=== PATIENT | female | born 1955 | race Caucasian/White ===

== ENCOUNTER 2017-03-31 14:11 | Outpatient (CLI) | payer MEDICAID ==
[2017-03-31 18:45] LABS: BASOPHILS % (AUTO) 0.4 %; EOSINOPHILS # (AUTO) 0.2 10^3/uL (0.0-0.7); EOSINOPHILS % (AUTO) 2.4 %; HGB - HEMOGLOBIN 15.1 g/dL (12.0-16.0); LYMPHOCYTES # (AUTO) 3.1 10^3/uL (1.5-3.5); LYMPHOCYTES % (AUTO) 39.3 %; MEAN CORPUSCULAR HEMOGLOBIN 29.7 pg (27.0-31.0); MEAN CORPUSCULAR HGB CONC 32.2 g/dL (32.0-36.0); MEAN CORPUSCULAR VOLUME 92.3 fL (81.0-99.0); MEAN PLATELET VOLUME 8.7 fL (7.9-10.8); MONOCYTES # (AUTO) 0.6 10^3/uL (0.0-1.0); MONOCYTES % (AUTO) 7.2 %; NEUTROPHILS % (AUTO) 50.7 %; PLT - PLATELET COUNT 378 10^3/uL (130-450); RED BLOOD COUNT 5.08 10^6/uL (4.20-5.40); RED CELL DISTRIBUTION WIDTH 14.4 % (12.0-15.0); WHITE BLOOD COUNT 7.8 x10^3/uL (4.8-10.8)
[2017-03-31 19:13] LABS: ALBUMIN 4.3 g/dL (3.2-5.5); ALBUMIN/GLOBULIN RATIO 1.4 (1.0-2.2); ALKALINE PHOSPHATASE 98 IU/L (42-121); ALT ALANINE AMINOTRANSFERASE 30 IU/L (10-60); AST ASPARTATE AMINOTRANSFERASE 25 IU/L (10-42); BILIRUBIN,TOTAL 0.5 mg/dL (0.2-1.0); BUN - BLOOD UREA NITROGEN 13 mg/dL (6-20); CALCIUM 9.7 mg/dL (8.5-10.3); CARBON DIOXIDE - CO2 25 mmol/L (21-32); CHLORIDE 107 mmol/L (101-111); CHOL/HDL RATIO 5.8 (<4.4); CHOLESTEROL 277 mg/dL; CREATININE 0.8 mg/dL (0.4-1.0); GFR - MDRD 73 (>89); GLUCOSE 99 mg/dL (70-100); HDL CHOLESTEROL 48 mg/dL; LDL CHOLESTEROL,CALCULATED 202 mg/dL; LDL/HDL RATIO 4.2 (<4.4); SODIUM 140 mmol/L (135-145); TOTAL PROTEIN 7.4 g/dL (6.7-8.2); VLDL CHOLESTEROL 27 mg/dL
[2017-03-31 19:14] LABS: CRP - C-REACTIVE PROTEIN < 1.0 mg/dL (0-1.0)
[2017-03-31 19:21] LABS: RHEUMATOID FACTOR NEGATIVE (Negative)
== END 2017-03-31 14:12 | disposition home or self-care (01) ==
LOC: LAB.N 14:11
PROVIDERS: ATTEND Physician Assistant Medical
DX: Z00.00 Encounter for general adult medical examination without abnormal findings (principal); F31.9 Bipolar disorder, unspecified; M25.50 Pain in unspecified joint
CPT/HCPCS: 36415; 80053; 80061; 83721; 84443; 85025; 85651; 86140; 86200; 86430

== ENCOUNTER 2017-06-09 12:42 | Outpatient (CLI) | payer MEDICAID ==
--- NOTE | 2017-06-10 09:26 | Mammography Report ---
DIGITAL BILATERAL SCREENING MAMMOGRAPHY: 06/09/2017 HISTORY: Mother with breast cancer and ovarian cancer, sister with breast cancer. TECHNIQUE: Bilateral digital CC and MLO projections. COMPARISON: 01/28/2016 and 06/14/2013. FINDINGS: There is extensive fatty replacement of the breast tissue. There is no dominant mass, architectural distortion, skin thickening, suspicious microcalcifications or interval change. IMPRESSION: NEGATIVE. BI-RADS CODE 1-NEGATIVE. SUGGEST RETURN TO ROUTINE SCREENING IN 12 MONTHS. STANDARD QUALIFYING STATEMENTS: 1. This examination was reviewed with the aid of Computer-Aided Detection (CAD). 2. A negative or benign imaging report should not delay biopsy if clinically suspicious findings are present. Consider surgical consultation if warranted. More than 5% of cancers are not identified by imaging. 3. Dense breasts may obscure an underlying neoplasm. TD: 06/10/2017 09:24
== END 2017-06-09 12:43 | disposition home or self-care (01) ==
LOC: DI 12:42
PROVIDERS: ATTEND Family Medicine
DX: Z12.31 Encounter for screening mammogram for malignant neoplasm of breast (principal); Z80.3 Family history of malignant neoplasm of breast
CPT/HCPCS: 77067

== ENCOUNTER 2017-06-09 12:54 | Outpatient (CLI) | payer MEDICAID ==
--- NOTE | 2017-06-09 17:11 | XRAY Report ---
BILATERAL HIPS: 06/09/2017 HISTORY: Pain. COMPARISON: None. FINDINGS: AP view of the pelvis and frog lateral view of each hip. The hip joints are well maintained. No evidence of fracture, bone destruction or significant joint space narrowing. Minor degenerative changes in the sacroiliac joints and lower lumbar spine. IMPRESSION: NEGATIVE HIPS FOR AGE. TD: 06/09/2017 17:11
--- NOTE | 2017-06-09 17:15 | XRAY Report ---
BILATERAL KNEES: 06/09/2017 HISTORY: Pain. COMPARISON: None. TECHNIQUE: Three views each knee. FINDINGS: RIGHT KNEE: Minimal patellar articular surface spurring. Medial and lateral knee joint spaces well maintained. No fracture, malalignment, joint effusion, or other abnormality. LEFT KNEE: Minimal degenerative spurring along the medial knee joint. Overall joint space heights well maintained. No fracture, malalignment, joint effusion, or other abnormality. IMPRESSION: MINIMAL EARLY DEGENERATIVE CHANGE OF EACH KNEE, COMMENSURATE WITH THE PATIENT'S AGE. NO SUPERIMPOSED ACUTE FINDINGS. TD: 06/09/2017 17:14 JESSI
--- NOTE | 2017-06-09 17:18 | XRAY Report ---
BILATERAL HANDS: 06/09/2017 HISTORY: Pain. COMPARISON: None. TECHNIQUE: Three views of each hand. FINDINGS: RIGHT HAND: Minimal early degenerative change in the interphalangeal joints of the fingers and thumb. Early first metacarpocarpal degenerative change. No evidence of fracture, malalignment, soft tissue swelling, radiopaque foreign body or other abnormality. LEFT HAND: Mild early degenerative changes of the interphalangeal joints of the fingers and thumb. Minor first metacarpocarpal degenerative change. No fracture, malalignment, soft tissue swelling, radiopaque foreign body or other abnormality. IMPRESSION: BILATERAL HAND EARLY DEGENERATIVE CHANGE WITHOUT SUPERIMPOSED ACUTE FINDINGS. TD: 06/09/2017 17:17
== END 2017-06-09 12:55 | disposition home or self-care (01) ==
LOC: DI 12:54
PROVIDERS: ATTEND Family Medicine
DX: M17.0 Bilateral primary osteoarthritis of knee (principal); M19.042 Primary osteoarthritis, left hand; M19.041 Primary osteoarthritis, right hand
CPT/HCPCS: 73521

== ENCOUNTER 2018-01-28 13:12 | Emergency (ER) | payer MEDICAID ==
[2018-01-28 13:52] LABS: BASOPHILS % (AUTO) 0.1 %; EOSINOPHILS # (AUTO) 0.5 10^3/uL (0.0-0.7); EOSINOPHILS % (AUTO) 4.7 %; HGB - HEMOGLOBIN 15.5 g/dL (12.0-16.0); LYMPHOCYTES # (AUTO) 3.1 10^3/uL (1.5-3.5); LYMPHOCYTES % (AUTO) 30.5 %; MEAN CORPUSCULAR HEMOGLOBIN 31.3 pg (27.0-31.0); MEAN CORPUSCULAR HGB CONC 34.2 g/dL (32.0-36.0); MEAN CORPUSCULAR VOLUME 91.5 fL (81.0-99.0); MEAN PLATELET VOLUME 8.4 fL (7.9-10.8); MONOCYTES # (AUTO) 0.7 10^3/uL (0.0-1.0); MONOCYTES % (AUTO) 6.7 %; NEUTROPHILS # (AUTO) 5.8 10^3/uL (1.5-6.6); PLT - PLATELET COUNT 403 10^3/uL (130-450); RED BLOOD COUNT 4.95 10^6/uL (4.20-5.40); RED CELL DISTRIBUTION WIDTH 14.3 % (12.0-15.0)
[2018-01-28 14:02] LABS: ALBUMIN 4.4 g/dL (3.2-5.5); ALBUMIN/GLOBULIN RATIO 1.5 (1.0-2.2); BILIRUBIN,TOTAL 0.3 mg/dL (0.2-1.0); CALCIUM 9.6 mg/dL (8.5-10.3); CREATININE 0.8 mg/dL (0.4-1.0); TOTAL PROTEIN 7.4 g/dL (6.7-8.2)
[2018-01-28 14:38] LABS: BILIRUBIN,URINE NEGATIVE (NEGATIVE); GLUCOSE, URINE (UA) NEGATIVE (NEGATIVE); KETONES,URINE (UA) NEGATIVE (NEGATIVE); LEUKOCYTE ESTERASE, URINE NEGATIVE (NEGATIVE); NITRITE,URINE NEGATIVE (NEGATIVE); OCCULT BLOOD,URINE TRACE-INTA (NEGATIVE); PROTEIN,URINE NEGATIVE (NEGATIVE); UROBILINOGEN,URINE 0.2 (NORMAL) E.U./dL (NORMAL)
[2018-01-28 14:41] LABS: CLARITY,URINE CLEAR (CLEAR)
--- NOTE | 2018-01-28 16:41 | ED Physician Documentation ---
PD HPI ABD PAIN - Stated complaint Stated Complaint: ABD PX/WEAKNESS - Chief complaint Chief Complaint: Abd Pain - History obtained from History obtained from: Patient - History of Present Illness Timing - onset: Other (1 week pain, starting LUQ now LLQ. Has H/O cholecystectomy, lap band. The lap band was removed 2 yrs ago. Has H/O diverticulitis dx clinically, no CT about 4 mos ago) Review of Systems Ten Systems: 10 systems reviewed and negative Constitutional: denies: Fever, Chills Nose: reports: Reviewed and negative Cardiac: reports: Reviewed and negative Respiratory: reports: Reviewed and negative GI: reports: Reviewed and negative PD PAST MEDICAL HISTORY - Past Medical History Past Medical History: Yes GI: Diverticulitis Psych: Bipolar disorder - Past Surgical History Past Surgical History: Yes General: Cholecystectomy, Gastric surgery - Present Medications Home Medications: Ambulatory Orders Medication Instructions Recorded Confirmed Amox/Clav 875/125 [Augmentin] 1 each PO Q12H #20 tablet 01/28/18 Benztropine Mesylate 0.5 01/28/18 Cholecalciferol (Vitamin D3) 1,000 unit PO 01/28/18 [Vitamin D3] Hydrocodone/Acetaminophen 1 - 2 each PO Q6H PRN #10 tablet 01/28/18 [Hydrocodon-Acetaminophen 5-325] Lamotrigine [Lamotrigine ER] 100 mg PO 01/28/18 Omeprazole 20 mg PO 01/28/18 QUEtiapine [SEROquel] 100 mg PO QPM 01/28/18 01/28/18 clonazePAM [Clonazepam] 1 mg PO 01/28/18 01/28/18 - Allergies Allergies/Adverse Reactions: Allergies Allergy/AdvReac Type Severity Reaction Status Date / Time codeine Allergy Edema Verified 01/28/18 13:19 moxifloxacin [From Avelox] Allergy Anaphylaxis Verified 01/28/18 13:19 - Social History Does the pt drink ETOH?: No Does the pt have substance abuse?: No - Family History Family history: reports: Non contributory PD ED PE NORMAL - Vitals Vital signs reviewed: Yes - General General: Alert and oriented X 3, No acute distress - HEENT HEENT: PERRL, EOMI - Neck Neck: Supple, no meningeal sign, No bony TTP - Cardiac Cardiac: RRR, No murmur - Respiratory Respiratory: No respiratory distress, Clear bilaterally - Abdomen Abdomen: Normal bowel sounds, Soft, Other (Left mid abdominal tenderness without surgical signs) - Back Back: No CVA TTP, No spinal TTP - Derm Derm: Normal color, Warm and dry - Extremities Extremities: No edema, No calf tenderness / cord - Neuro Neuro: Alert and oriented X 3, Normal speech - Psych Psych: Normal mood, Normal affect Results - Vitals Vitals: Vital Signs - 24 hr 01/28/18 01/28/18 13:16 16:40 Temperature 36.6 C Heart Rate 84 82 Respiratory 18 14 Rate Blood Pressure 149/103 H 162/98 H O2 Saturation 98 96 Oxygen O2 Source Room air - Labs Labs: Laboratory Tests 01/28/18 01/28/18 01/28/18 13:43 13:43 14:35 WBC 10.0 RBC 4.95 Hgb 15.5 Hct 45.3 MCV 91.5 MCH 31.3 H MCHC 34.2 RDW 14.3 Plt Count 403 MPV 8.4 Neut # (Auto) 5.8 Lymph # (Auto) 3.1 [place] # (Auto) 0.7 Eos # (Auto) 0.5 Baso # (Auto) 0.0 Absolute Nucleated RBC 0.00 Nucleated RBC % 0.0 Sodium 140 Potassium 3.6 Chloride 106 Carbon Dioxide 26 Anion Gap 8.0 BUN 10 Creatinine 0.8 Estimated GFR (MDRD) 72 L Glucose 101 H Calcium 9.6 Total Bilirubin 0.3 AST 20 ALT 17 Alkaline Phosphatase 82 Total Protein 7.4 Albumin 4.4 Globulin 3.0 Albumin/Globulin Ratio 1.5 Lipase 35 Urine Color YELLOW Urine Clarity CLEAR Urine pH 6.0 Ur Specific [place] 1.010 Urine Protein NEGATIVE Urine Glucose (UA) NEGATIVE Urine Ketones NEGATIVE Urine Occult Blood TRACE-INTA Urine Nitrite NEGATIVE Urine Bilirubin NEGATIVE Urine Urobilinogen 0.2 (NORMAL) Ur Leukocyte Esterase NEGATIVE Ur Microscopic Review NOT INDICATED Urine Culture Comments NOT INDICATED - Rads (name of study) CT A/P Radiology: EMP read contemporaneously (Diverticulosis without obvious diverticulitis. Cholecystectomy and hiatal hernia.) PD MEDICAL DECISION MAKING - ED course ED course: 62-year-old woman with history of diverticulitis presents with symptoms of same. Not obvious on CT but suspect it is indolent without imaging findings given lack of other findings. She has had good relief with Augmentin in the past. Departure - Departure Disposition: Home, Self Care Clinical Impression: Diverticulitis of gastrointestinal tract Condition: Good Record reviewed to determine appropriate education?: Yes Instructions: ED Abdominal Pain Unkn Cause Prescriptions: Amox/Clav 875/125 [Augmentin] 1 each PO Q12H #20 tablet Hydrocodone/Acetaminophen [Hydrocodon-Acetaminophen 5-325] 1 - 2 each PO Q6H PRN #10 tablet PRN Reason: pain Comments: Call your doctor to arrange a follow-up appointment, make the next available appointment. In the interim, return anytime if worse or if new symptoms develop. Your blood pressure was elevated today on check into the emergency department. This does not mean that you have hypertension, it is a common phenomenon to come to the emergency department and have elevated blood pressure. I recommend that you see your primary care physician within the week to have it rechecked when you are feeling better. Do not drink or drive while taking narcotic pain medication. Note that many narcotic pain relievers also contain Tylenol/acetaminophen. Please ensure that your total dose of acetaminophen from all sources does not exceed 3 g (3000 mg) per day. You may get constipated while on this medication. Take a stool softener such as Colace twice a day while you are on it. Also add an [id number] laxative such as senna or MiraLAX on any day that you do not have a bowel movement. If you received a narcotic pain medication or sedative while in the emergency department, do not drive for the next 24 hours.
[2018-01-28] MEDS ORDERED: ACETAMINOPHEN 325 MG TABLET PO STA (16:46)
[2018-01-28] MEDS ORDERED: IOVERSOL 320 100 ML VIAL IVP ONE ×2 (16:57→17:29)
--- NOTE | 2018-01-28 18:16 | CT Report ---
Reason: IV only, L side abd pain Procedure Date: 01/28/2018 Accession Number: [id number] / [id number] Procedure: CT - Abdomen/Pelvis W/ CPT Code: FULL RESULT: EXAM: CT ABDOMEN AND PELVIS EXAM DATE: 01/28/2018 05:25 PM. CLINICAL HISTORY: IV only, L side abd pain. COMPARISONS: None. TECHNIQUE: Routine helical CT imaging was performed through the abdomen and pelvis. IV contrast: optiray 320 100 ml. Enteric contrast: No. Reconstructions: Coronal and sagittal. In accordance with CT protocol optimization, one or more of the following dose reduction techniques were utilized for this exam: automated exposure control, adjustment of mA and/or KV based on patient size, or use of iterative reconstructive technique. FINDINGS: Lung Bases: Lung bases are clear. No pleural or pericardial effusions. No cardiac enlargement. Moderate paraesophageal hiatal hernia noted. Liver: Normal. No masses. Gallbladder/Bile Ducts: Gallbladder is absent. No common bile duct dilation noted. Spleen: Normal. Pancreas: Normal. Adrenal Glands: Normal. Kidneys: Normal. No masses or hydronephrosis. Peritoneal Cavity/Bowel: Normal. No free fluid, free air or adenopathy. No masses or acute inflammatory process. There are multiple diverticula seen which most severely affect the sigmoid colon. No wall thickening or adjacent inflammation seen. No obstruction noted. Appendix is not seen. Sigmoid colon is redundant. Pelvic Organs: No pelvic mass, adenopathy or collection. Vasculature: Diffuse atheromatous plaques are present in the abdominal aorta and branch vessels. No aneurysm. Normal IVC. Bones: No osteoblastic or osteolytic lesions are noted. Multilevel degenerative disk disease and facet arthropathy is noted. Transitional L5 vertebral body. Grade 1 L4 on L5 anterolisthesis. Multilevel degenerative disk disease in the lower thoracic spine noted. Other: None. IMPRESSION: 1. No acute abnormality in the abdomen or pelvis. 2. Diverticulosis. 3. Previous cholecystectomy. 4. Moderate paraesophageal hernia. RADIA
[2018-01-28] MEDS ORDERED: AMOX/CLAV 875 MG/125 MG TABLET PO STA (18:34)
[2018-01-28 18:55] VITALS: BP 168/72
== END 2018-01-28 18:54 | disposition home or self-care (01) ==
LOC: ED 13:12
DX: K57.92 Diverticulitis of intestine, part unspecified, without perforation or abscess without bleeding (principal); R03.0 Elevated blood-pressure reading, without diagnosis of hypertension
CPT/HCPCS: 36415; 74177; 80053; 81003; 83690; 85025; 99283; 99284; A9270; Q9967; 81001; 87086

== ENCOUNTER 2018-08-03 18:01 | Emergency (ER) | payer MEDICAID ==
--- NOTE | 2018-08-03 20:32 | ED Physician Documentation ---
History of Present Illness - Stated complaint Stated Complaint: BODY ACHES - Chief complaint Chief Complaint: General - History obtained from History obtained from: Patient - History of Present Illness Timing: How many weeks ago (8) - Additonal information Additional information: This is 62-year-old woman who presents with complaints that 2 weeks ago she got scratched by herCat on her right pinky finger. She developed a lesion at that area and she went into see her primary care provider who put her on Augmentin for 7 days had her put Neosporin on it and bandaging it. She went back again when it was not improving and they put her doing Epson salt soaks and she went back a third time they recommended that she go see a curve saw operator but she cannot get into them for 2 months. She is here tonight because for the past 2 weeks she just feels exhausted. If she does any type of activity she just has to sit and rest. Her joints are achy and it is tender in the right armpit. She has really felt short of breath or had palpitations or chest pain or nausea. She does have a headache. There has not been any drainage from this wound although it is painful. She has had no fever. Denies peripheral edema. Review of Systems Constitutional: reports: Fatigue. denies: Fever, Chills Cardiac: denies: Chest pain / pressure, Palpitations, Pedal edema Respiratory: denies: Dyspnea, Cough GI: denies: Nausea, Vomiting : denies: Dysuria Neurologic: reports: Headache Endocrine: reports: Other (No history of diabetes.) PD PAST MEDICAL HISTORY - Past Medical History Endocrine/Autoimmune: None GI: Diverticulitis Psych: Bipolar disorder - Past Surgical History Past Surgical History: Yes General: Cholecystectomy, Gastric surgery - Present Medications Home Medications: Ambulatory Orders Medication Instructions Recorded Confirmed Benztropine Mesylate 0.5 01/28/18 Cholecalciferol (Vitamin D3) 1,000 unit PO 01/28/18 [Vitamin D3] Lamotrigine [Lamotrigine ER] 100 mg PO 01/28/18 QUEtiapine [SEROquel] 150 mg PO QPM 01/28/18 01/28/18 clonazePAM [Clonazepam] 1 mg PO PRN 01/28/18 01/28/18 Azithromycin [Zithromax] 0 mg PO DAILY #6 tablet 08/03/18 - Allergies Allergies/Adverse Reactions: Allergies Allergy/AdvReac Type Severity Reaction Status Date / Time codeine Allergy Edema Verified 08/03/18 18:21 moxifloxacin [From Avelox] Allergy Anaphylaxis Verified 08/03/18 18:21 - Social History Does the pt smoke?: Yes Smoking Status: Current every day smoker Does the pt drink ETOH?: No Does the pt have substance abuse?: No - POLST Patient has POLST: No PD ED PE NORMAL - Vitals Vital signs reviewed: Yes - General General: Alert and oriented X 3, No acute distress, Well developed/nourished - HEENT HEENT: Atraumatic - Neck Neck: No adenopathy - Cardiac Cardiac: RRR, No murmur - Respiratory Respiratory: No respiratory distress - Abdomen Abdomen: Normal bowel sounds - Derm Derm: Normal color, Other (On the ulnar aspect of the right pinky at the DIP joint there is what appears to be a pyogenic granuloma.) - Extremities Extremities: No deformity, Other (No obvious lymphadenopathy or lymphangitis. She is very tender with palpation in the right axilla but I cannot feel a large node.) - Neuro Neuro: Alert and oriented X 3, block bolter mule operator 2-12 intact, Normal speech - Psych Psych: Normal mood Results - Vitals Vitals: Vital Signs - 24 hr 08/03/18 08/03/18 18:14 22:32 Temperature 36.4 C L 36.2 C L Heart Rate 87 76 Respiratory 18 20 Rate Blood Pressure 138/84 H 128/69 O2 Saturation 96 94 Oxygen O2 Source Room air - EKG (time done) 2057 Rate: Rate (enter#) Rhythm: NSR Intervals: Normal CA Ischemia: Normal ST segments Compare to prior EKG: Old EKG unavailable - Labs Labs: Laboratory Tests 08/03/18 08/03/18 08/03/18 20:59 20:59 20:59 WBC 10.5 RBC 4.84 Hgb 15.1 Hct 44.6 MCV 92.1 MCH 31.3 H MCHC 33.9 RDW 14.4 Plt Count 367 MPV 7.8 L Neut # (Auto) 6.0 Lymph # (Auto) 3.2 [place] # (Auto) 0.7 Eos # (Auto) 0.4 Baso # (Auto) 0.1 Absolute Nucleated RBC 0.00 Nucleated RBC % 0.0 Sodium 140 Potassium 3.9 Chloride 106 Carbon Dioxide 22 Anion Gap 12.0 BUN 12 Creatinine 0.7 Estimated GFR (MDRD) 85 L Glucose 90 Calcium 9.9 Total Bilirubin 0.6 AST 25 ALT 24 Alkaline Phosphatase 75 Troponin I < 0.04 Total Protein 7.6 Albumin 4.5 Globulin 3.1 Albumin/Globulin Ratio 1.5 Lipase 65 H PD MEDICAL DECISION MAKING - ED course Complexity details: re-evaluated patient, d/w patient ED course: Patient's chest x-ray shows a hiatal hernia but no infiltrate. Her EKG is normal and normal troponin. She does not have an elevated white blood cell count and renal function is normal. She does have this nodular lesion from a cat scratch on her right pinky finger and axillary tenderness without obvious red streaking up the arm and no large palpable lymph node.I meant to treat her with Zithromax on the possibility of cat scratch disease. Encouraged her to follow-up with her primary care provider and the curve saw operator as scheduled. Departure - Departure Disposition: 01 Home, Self Care Clinical Impression: Nodule of finger of right hand Fatigue Qualifiers: Fatigue type: unspecified Qualified Code(s): R53.83 - Other fatigue Condition: Good Instructions: ED Weakness UKO Prescriptions: Azithromycin [Zithromax] 0 mg PO DAILY #6 tablet Comments: Take the Zithromax antibiotic as prescribed. Continue to soak the finger and I would recommend a follow-up with your primary care provider next week. Ibuprofen if needed for pain. I would still recommend follow-up with the curve saw operator. Discharge Date/Time: 08/03/18 22:46
[2018-08-03 21:07] LABS: BASOPHILS # (AUTO) 0.1 10^3/uL (0.0-0.1); EOSINOPHILS # (AUTO) 0.4 10^3/uL (0.0-0.7); HGB - HEMOGLOBIN 15.1 g/dL (12.0-16.0); LYMPHOCYTES # (AUTO) 3.2 10^3/uL (1.5-3.5); LYMPHOCYTES % (AUTO) 30.4 %; MEAN CORPUSCULAR HEMOGLOBIN 31.3 pg (27.0-31.0); MEAN CORPUSCULAR HGB CONC 33.9 g/dL (32.0-36.0); MEAN CORPUSCULAR VOLUME 92.1 fL (81.0-99.0); MEAN PLATELET VOLUME 7.8 fL (7.9-10.8); MONOCYTES # (AUTO) 0.7 10^3/uL (0.0-1.0); MONOCYTES % (AUTO) 6.9 %; NEUTROPHILS % (AUTO) 57.7 %; PLT - PLATELET COUNT 367 10^3/uL (130-450); RED BLOOD COUNT 4.84 10^6/uL (4.20-5.40); RED CELL DISTRIBUTION WIDTH 14.4 % (12.0-15.0); WHITE BLOOD COUNT 10.5 x10^3/uL (4.8-10.8)
[2018-08-03 21:21] LABS: ALBUMIN 4.5 g/dL (3.2-5.5); ALBUMIN/GLOBULIN RATIO 1.5 (1.0-2.2); BILIRUBIN,TOTAL 0.6 mg/dL (0.2-1.0); CALCIUM 9.9 mg/dL (8.5-10.3); CREATININE 0.7 mg/dL (0.4-1.0); TOTAL PROTEIN 7.6 g/dL (6.7-8.2)
--- NOTE | 2018-08-03 21:25 | XRAY Report ---
Reason: cough Procedure Date: 08/03/2018 Accession Number: [id number] / [id number] Procedure: XR - Chest 2 View X-Ray CPT Code: 87205 FULL RESULT: EXAM: CHEST RADIOGRAPHY EXAM DATE: 08/03/2018 09:15 PM. CLINICAL HISTORY: Cough. COMPARISON: None. TECHNIQUE: 2 views. FINDINGS: Lungs/Pleura: No focal opacities evident. No pleural effusion. No pneumothorax. Normal volumes. Mediastinum: Heart and mediastinal contours are unremarkable. A moderate hiatal hernia seen in the posterior mediastinum with an air-fluid level. Other: None. IMPRESSION: A moderate hiatal hernia in posterior mediastinum. No acute cardiopulmonary process. RADIA
[2018-08-03 22:33] VITALS: BP 128/69
== END 2018-08-03 22:46 | disposition home or self-care (01) ==
LOC: ED 18:01
DX: L98.8 Other specified disorders of the skin and subcutaneous tissue (principal); R22.31 Localized swelling, mass and lump, right upper limb; R53.83 Other fatigue; M79.621 Pain in right upper arm; S60.416D Abrasion of right little finger, subsequent encounter; W55.03XD Scratched by cat, subsequent encounter; K44.9 Diaphragmatic hernia without obstruction or gangrene; F17.200 Nicotine dependence, unspecified, uncomplicated
CPT/HCPCS: 36415; 71046; 80053; 83690; 84484; 85025; 93005; 99283

== ENCOUNTER 2018-09-15 12:12 | Outpatient (CLI) | payer MEDICAID ==
--- NOTE | 2018-09-15 17:30 | XRAY Report ---
Reason: SNORING Procedure Date: 09/15/2018 Accession Number: [id number] / [id number] Procedure: XR - Chest 2 View X-Ray CPT Code: 06301 FULL RESULT: EXAM: CHEST RADIOGRAPHY EXAM DATE: 09/15/2018 12:26 PM. CLINICAL HISTORY: SNORING. COMPARISON: CHEST 2 VIEW 08/03/2018 8:57 PM. TECHNIQUE: 2 views. FINDINGS: Lungs/Pleura: No focal opacities evident. No pleural effusion. No pneumothorax. Normal volumes. Mediastinum: Heart and mediastinal contours are unremarkable with the exception of a stable moderate hiatal hernia and mildly tortuous thoracic aorta. Other: Advanced degenerative changes in the mid to lower thoracic spine. IMPRESSION: 1. No acute process seen in the chest. 2. Moderate hiatal hernia. RADIA
== END 2018-09-15 12:13 | disposition home or self-care (01) ==
LOC: DI 12:12
PROVIDERS: ATTEND Internal Medicine
DX: R06.83 Snoring (principal); K44.9 Diaphragmatic hernia without obstruction or gangrene
CPT/HCPCS: 71046

== ENCOUNTER 2020-11-24 14:03 | Emergency (ER) | payer MEDICARE, MEDICAID ==
--- NOTE | 2020-11-24 15:03 | XRAY Report ---
PROCEDURE: Shoulder 3 View LT INDICATIONS: injury TECHNIQUE: 3 views of the shoulder were acquired. COMPARISON: CXR 09/15/2018. FINDINGS: Bones: No fractures or dislocations. Mild degenerative change at the glenohumeral joint. Moderate d egenerative change at the AC joint. No suspicious bony lesions. Visualized ribs appear intact. Soft tissues: Small calcifications near the rotator cuff insertion. No suspicious soft tissue calcif ications. IMPRESSION: 1. 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 2. Question of calcific tendinitis. Reviewed by: Carlos Morales MD on 11/24/2020 3:02 PM PDT Approved by: Carlos Morales MD on 11/24/2020 3:02 PM PDT Station ID: [id number]
--- NOTE | 2020-11-24 16:22 | ED Physician Documentation ---
PD HPI LOWER EXT INJURY - Stated complaint Stated Complaint: LT SHOULDER INJ - Chief complaint Chief Complaint: Trauma Ext - History obtained from History obtained from: Patient - Additional information Additional information: Pt comes to the ED with CC of L shoulder pain after falling out of bed a couple of nights ago. She states that she had lost her balance while attempting to adjust her CPAP mask and tubing. Pt landed on the lateral aspect of her shoulder and complains of pain over the AC joint, spreading down over her deltoid and a little on her posterior shoulder. Review of Systems Ten Systems: 10 systems reviewed and negative Constitutional: reports: Reviewed and negative Eyes: reports: Reviewed and negative Ears: reports: Reviewed and negative Nose: reports: Reviewed and negative Throat: reports: Reviewed and negative Cardiac: reports: Reviewed and negative Respiratory: reports: Reviewed and negative GI: reports: Reviewed and negative : reports: Reviewed and negative Skin: reports: Reviewed and negative Musculoskeletal: reports: Joint pain Neurologic: reports: Reviewed and negative Psychiatric: reports: Reviewed and negative Endocrine: reports: Reviewed and negative Immunocompromised: reports: Reviewed and negative PD PAST MEDICAL HISTORY - Past Medical History Past Medical History: Yes Respiratory: Sleep apnea, CPAP use Endocrine/Autoimmune: None GI: Diverticulitis Psych: Bipolar disorder - Past Surgical History Past Surgical History: Yes General: Cholecystectomy, Gastric surgery - Present Medications Home Medications: Ambulatory Orders Medication Instructions Recorded Confirmed Benztropine Mesylate 0.5 mg ORAL BID 01/28/18 Lamotrigine [Lamotrigine ER] 100 mg PO DAILY 01/28/18 11/24/20 QUEtiapine [SEROquel] 200 mg PO QPM 01/28/18 11/24/20 clonazePAM [Clonazepam] 1 mg PO DAILY PRN 01/28/18 11/24/20 - Allergies Allergies/Adverse Reactions: Allergies Allergy/AdvReac Type Severity Reaction Status Date / Time codeine Allergy Edema Verified 11/24/20 14:25 moxifloxacin [From Avelox] Allergy Anaphylaxis Verified 11/24/20 14:25 red dye Allergy Hives Verified 11/24/20 14:25 - Social History Does the pt smoke?: No Smoking Status: Former smoker Does the pt drink ETOH?: No Does the pt have substance abuse?: No - POLST Patient has POLST: No PD ED PE NORMAL - Vitals Vital signs reviewed: Yes - General General: Alert and oriented X 3, No acute distress, Well developed/nourished - HEENT HEENT: Atraumatic, PERRL, EOMI, Moist mucous membranes - Neck Neck: Supple, no meningeal sign, No bony TTP - Cardiac Cardiac: Strong equal pulses - Respiratory Respiratory: No respiratory distress - Back Back: No spinal TTP - Derm Derm: Normal color, Warm and dry, No rash - Extremities Extremities: No deformity, No edema, Other (Slight prominence of L AC joint compared to R, with tenderness. Mildly limited ROM, secondary to pain) - Neuro Neuro: Alert and oriented X 3, tour sales representative 2-12 intact, No motor deficit, No sensory deficit, Normal speech - Psych Psych: Normal mood, Normal affect Results - Vitals Vitals: Vital Signs - 24 hr 11/24/20 11/24/20 14:25 16:38 Temperature 36.6 C 36.2 C L Heart Rate 95 81 Respiratory 20 18 Rate Blood Pressure 172/86 H 143/85 H O2 Saturation 98 96 Oxygen O2 Source Room air - Rads (name of study) L shoulder XR Radiology: Final report received, EMP read indepedently, See rad report (djd) PD MEDICAL DECISION MAKING - ED course Complexity details: reviewed results, re-evaluated patient, considered differential, d/w patient ED course: Discussed findings with pt--XR of L shoulder shows DJD. Clinically, pt has a mild AC sprain, also. We have discussed symptomatic management, as well as the usual indications for follow-up and return. Departure - Departure Disposition: 01 Home, Self Care Clinical Impression: Shoulder arthritis Acromioclavicular separation, type 1 Qualifiers: Encounter type: initial encounter Laterality: left Qualified Code(s): S43.102A - Unspecified dislocation of left acromioclavicular joint, initial encounter Condition: Stable Instructions: ED Sprain AC Joint, ED Degenerative Joint Disease Comments: Your shoulder x-ray series does not show any broken or dislocated bones. You have arthritis of the shoulder, and you were also sore over your acromioclavicular joint, which may have taken some strain when you fell. These injuries generally settle down on their own in a matter of days to weeks. You may take anti-inflammatories for both arthritis and the acromioclavicular injury. You can also use ice and heat and range of motion exercises, as we discussed. Please follow-up with your primary care physician if you are not fee ling any improvement in the next couple of weeks, to discuss whether MRI is an appropriate next step. Discharge Date/Time: 11/24/20 16:38
[2020-11-24 16:38] VITALS: BP 143/85
== END 2020-11-24 16:38 | disposition home or self-care (01) ==
LOC: ED 14:03
DX: S43.102A Unspecified dislocation of left acromioclavicular joint, initial encounter (principal); W06.XXXA Fall from bed, initial encounter; Y93.89 Activity, other specified; Y92.003 Bedroom of unspecified non-institutional (private) residence as the place of occurrence of the external cause; M19.012 Primary osteoarthritis, left shoulder; Z87.891 Personal history of nicotine dependence
CPT/HCPCS: 99282; 99283

== ENCOUNTER 2021-02-11 12:09 | Outpatient (CLI) | payer MEDICARE, MEDICAID | END 2021-02-11 12:10 | disposition EMS.NT | LOC: EMS 12:09 | DX: M79.601 Pain in right arm (principal); V79.88XA Bus occupant (driver) (passenger) injured in other specified transport accidents, initial encounter; Y92.488 Other paved roadways as the place of occurrence of the external cause ==

== ENCOUNTER 2021-02-11 12:50 | Outpatient (CLI) | payer MEDICARE, MEDICAID ==
[2021-02-11 14:03] VITALS: BP 132/88
--- NOTE | 2021-02-11 14:03 | SLEEP CARE CONSULTATION ---
Information from patient questionnaire entered by Sabrina Snyder MA. I have reviewed and concur with the information entered by Sabrina Snyder MA. This document represents the service I personally performed and the decisions made by , Sherrie Lovell ARNP. History of Present Illness Service Date and Time: 02/11/2021 1250 Reason for Visit: New patient, sleep apnea on CPAP therapy Chief Complaint: reports: Other (obstructive sleep apnea, need new Dr. & CPAP) Date of Onset: Years Usual bedtime: 8 Time it takes to fall asleep: 10-20 minutes Snores at night: No (not any more) Observed to quit breathing while asleep: No (these problems solved with CPAP) Sleeps alone due to snoring: No Number of times waking at night: 0; occasionally, not very often Toss, Turn, or Twitch while sleeping: Yes (occasionally) Recalls having dreams: Yes Usually gets out of bed at: 4 AM Feels refreshed in the morning: Yes Morning headache: Yes Sleepy or fatigued during the day: No (not anymore) Ever fallen asleep while driving: Yes (once years ago) Takes day naps: Yes Dreams during day naps: No Prior sleep studies: Yes Year and Where: 01/21/2019 [facility] Type of Sleep Study: Polysomnography Additional HPI information: JARED TIRADO was previously diagnosed to have moderate, AHI 28.6, obstructive sleep apnea-hypopnea syndrome and comes in today to establish care for CPAP therapy. - Parasomnia Symptoms Ever been unable to move upon waking from sleep: No Walks in sleep: No Talks in sleep: Yes Ever acted out dreams in sleep: No Ever felt weak in the knees when startled or emotional: Yes Bothered by creepy, crawly, restless sensations in legs: No Problems with memory or concentration: Yes CPAP Compliance Data - Data Reviewed with Patient Average duration of nightly device use: 9 hours 28 minutes Compliance rate %: 97.8 Current pressure setting (cmH2O): 9.0 Humidity settin Heated hose settin Average residual AHI: 1.9 Central apnea: 0.4 Obstructive apnea: 0.3 Hypopnea: 1.2 Average large leak: 50 minutes 34 seconds Compliance data discussion: Patient has a Dreamstation that is a replacement due to her original machine malfunctioning. She has been getting her supplies from a DME store next to Dr. Bg Fernandez. She is using a full face mask, F20?. She last changed her cushion in October/November. Subjective Patient concerns: reports: dry mouth, nose, throat (occasionally). denies: aerophagia, mask discomfort, air blowing in eyes, mask leak noise, condensation in mask/hose, nasal congestion, epistaxis, other Observed to snore while using device: No Current pressure setting perceived as: comfortable On therapy, patient: reports: sleeping better, awakening more refreshed, being more awake and alert during the day, more rested overall. 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 Patient is and lives in [place]. Have you smoked in the past 12 months: No Cigarettes per day (20/pack): 20 Years of smokin Quit date: Apr 14 Smoking Pack Years: 40.0 Alcohol use: No Caffeine use: Yes Caffeine amount and frequency: 1-2 cups coffee mornings Family History Family history of sleep disordered breathing: Yes Family Hx Sleep Apnea: Father: Snoring, Sleep apnea - Treated Allergies and Home Medications Drug allergies reviewed: Yes (codiene, Avelox, red dye) Home medication list reviewed: Yes Allergy and home medication list: Lamotrogine Quetiapine (seroquel) Bentropine Clonazepam, prn Rosuvastatin Review of Systems Weight gain over past 5 years: 60 pounds Physical Exam Vital signs obtained and entered by: John SNYDER CMA [employer]AF[employer]ITY Blood Pressure: 132/88 (LEFT) Cuff size: wrist Heart Rate: 94 O2 Saturation: 97 (WITH MASK) Height: 5 ft 2 in Weight: 267 lb Body Mass Index: 48.8 BMI Classification: Morbidly Obese Impression and Plan 1. Obstructive Sleep Apnea-Hypopnea Syndrome, moderate, with good treatment compliance and good apnea control. On CPAP therapy, the patient has better sleep quality and is more rested overall. She moved here 4 months ago and needs to establish with a new DME supplier. I will have my social service coordinator inform of DME options. A DWO prescription will then be made. Patient advised to contact this office if further supply problems. Patient's apnea severity and rationale for treatment to reduce apnea, improve sleep quality and reduce cardiovascular and cerebrovascular events was reviewed. I also reviewed the benefit of consistent device use of CPAP for depression. Patient is looking into getting bariatric surgery. Patient was encouraged to continue to try to lose weight for their overall health and to reduce apneas. * Continue auto CPAP pressure at 9 cmH2O * Transfer DME * Update supplies * Notify me if snoring with mask or feeling that the pressure is too much or too little * Attempt to lose weight * Call this office if any problems using CPAP * Return for follow up in 1 year, or sooner if concerns arise Counseling Topics: Weight loss health impact Visit Type: In Office Time Spent with Patient (minutes): 44 Provider Statement: I spent 100% of the Face to Face Visit with the patient with greater than 50% spent counseling the patient and coordination of care.
== END 2021-02-11 12:51 | disposition home or self-care (01) ==
LOC: SC 12:50
PROVIDERS: ATTEND Nurse Practitioner Family
DX: G47.33 Obstructive sleep apnea (adult) (pediatric) (principal); Z87.891 Personal history of nicotine dependence; E66.01 Morbid (severe) obesity due to excess calories; Z68.42 Body mass index [BMI] 45.0-49.9, adult
CPT/HCPCS: 99203; G0463; 99212

== ENCOUNTER 2021-04-06 21:11 | Emergency (ER) | payer MEDICARE, MEDICAID ==
--- NOTE | 2021-04-06 21:46 | ED Physician Documentation ---
History of Present Illness - Stated complaint Stated Complaint: SOA, SPITING BLOOD, WEAKNESS - Chief complaint Chief Complaint: Resp - History obtained from History obtained from: Patient - Additonal information Additional information: 65yF with pmh bipolar disorder, former smoker (quit 1 year ago almost exactly), p/w L sided CP intermittent X 1 week, gradual onset, worse with deep breathing, radiating to the back, mild severity, constant, a/w increased SOA today described as sensation "I can't catch a full breath". patient had possible covid exposure a few weeks ago . +covid vaccinated. endorses sore throat and subjective fever/chills over past 2-3 days with postnasal drip. she intermittently has been spitting up thin mucus with streaks of blood. denies cough. No FH [place] in first degree relative. sister with history of pulmonary embolism Review of Systems Ten Systems: 10 systems reviewed and negative Constitutional: reports: Fever, Chills, Fatigue. denies: Myalgias Nose: reports: Other (postnasal drip) Throat: reports: Sore throat Cardiac: reports: Chest pain / pressure. denies: Palpitations, Pedal edema, Calf pain Respiratory: reports: Dyspnea. 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: None : None HEENT: None Psych: Bipolar disorder - Past Surgical History Past Surgical History: Yes General: Cholecystectomy, Gastric surgery - Present Medications Home Medications: Ambulatory Orders Medication Instructions Recorded Confirmed Benztropine Mesylate 0.5 mg ORAL BID 01/28/18 Lamotrigine [Lamotrigine ER] 100 mg PO DAILY 01/28/18 11/24/20 QUEtiapine [SEROquel] 200 mg PO QPM 01/28/18 11/24/20 clonazePAM [Clonazepam] 1 mg PO DAILY PRN 01/28/18 11/24/20 - Allergies Allergies/Adverse Reactions: Allergies Allergy/AdvReac Type Severity Reaction Status Date / Time codeine Allergy Edema Verified 04/06/21 21:19 moxifloxacin [From Avelox] Allergy Anaphylaxis Verified 04/06/21 21:19 red dye Allergy Hives Verified 04/06/21 21:19 - Social History Does the pt smoke?: No Smoking Status: Former smoker Does the pt drink ETOH?: No Does the pt have substance abuse?: No - POLST Patient has POLST: No PD ED PE NORMAL - Vitals Vital signs reviewed: Yes - General General: Alert and oriented X 3, No acute distress, Well developed/nourished - HEENT HEENT: Atraumatic, PERRL, EOMI - Neck Neck: Supple, no meningeal sign - Cardiac Cardiac: RRR - Respiratory Respiratory: No respiratory distress, Clear bilaterally - Abdomen Abdomen: Non tender, Non distended - Back Back: No CVA TTP - Derm Derm: Normal color - Extremities Extremities: No deformity, No edema, No calf tenderness / cord - Neuro Neuro: Alert and oriented X 3, No motor deficit, No sensory deficit, Normal speech - Psych Psych: Normal mood, Normal affect Results - Vitals Vitals: Vital Signs - 24 hr 04/06/21 04/06/21 04/06/21 21:14 21:19 22:00 Temperature 36.1 C L 36.1 C L Heart Rate 102 H 102 H 80 Respiratory 24 24 19 Rate Blood Pressure 134/99 H 134/99 H 110/57 L O2 Saturation 96 96 95 04/06/21 23:00 Temperature Heart Rate 73 Respiratory 19 Rate Blood Pressure 127/70 O2 Saturation 94 Oxygen O2 Source Room air - EKG (time done) 2123 Rate: Rate (enter#) (88) Rhythm: NSR [place]: Normal Intervals: Normal IN QRS: Normal Ischemia: Normal ST segments - Labs Labs: Laboratory Tests 04/06/21 04/06/21 04/06/21 21:53 21:53 21:53 WBC 7.4 RBC 4.38 Hgb 13.1 Hct 40.7 MCV 92.9 MCH 29.9 MCHC 32.2 RDW 14.2 Plt Count 374 MPV 9.4 Neut # (Auto) 3.6 Lymph # (Auto) 3.0 [place] # (Auto) 0.6 Eos # (Auto) 0.2 Baso # (Auto) 0.0 Absolute Nucleated RBC 0.00 Nucleated RBC % 0.0 D-Dimer 242.1 VBG pH VBG pCO2 VBG pO2 VBG HCO3 VBG Total CO2 VBG O2 Saturation VBG Base Excess Sodium 141 Potassium 4.0 Chloride 107 Carbon Dioxide 25 Anion Gap 9.0 BUN 18 Creatinine 1.1 H Estimated GFR (MDRD) 50 L Glucose 104 H Calcium 9.7 Total Bilirubin 0.3 AST 19 ALT 18 Alkaline Phosphatase 63 Troponin I High Sens Total Protein 6.8 Albumin 3.9 Globulin 2.9 Albumin/Globulin Ratio 1.3 Lipase 47 04/06/21 04/06/21 21:53 21:53 WBC RBC Hgb Hct MCV MCH MCHC RDW Plt Count MPV Neut # (Auto) Lymph # (Auto) [place] # (Auto) Eos # (Auto) Baso # (Auto) Absolute Nucleated RBC Nucleated RBC % D-Dimer VBG pH 7.383 VBG pCO2 37.3 L VBG pO2 85.0 H VBG HCO3 21.7 L VBG Total CO2 22.9 L VBG O2 Saturation 96.6 H VBG Base Excess -2.9 L Sodium Potassium Chloride Carbon Dioxide Anion Gap BUN Creatinine Estimated GFR (MDRD) Glucose Calcium Total Bilirubin AST ALT Alkaline Phosphatase Troponin I High Sens 3.5 Total Protein Albumin Globulin Albumin/Globulin Ratio Lipase PD MEDICAL DECISION MAKING - ED course ED course: 65yF p/w CP and SOA, will obtain labs to r/o PE. low suspicion of cardiac etiology given HEART score 2 and patient has had extensive workup this year with media relations associate Dr. Mau Roberts including negative nuclear stress test, normal echocardiogram and zio heart monitoring. D-dimer negative with low pretest probability given more likely scenario of viral infection (sore throat, post nasal drip, malaise, fatigue). symptom care discussed and return precautions given. patient has appointment for f/u with her pcp this tuesday. Departure - Departure Disposition: Home, Self Care Clinical Impression: Shortness of breath, Sore throat, Postnasal drip, Chest pain Condition: Stable Instructions: ED Viral Syndrome Comments: You were seen in the ED for evaluation of multiple symptoms concerning for viral upper respiratory infection. Your labwork and ekg are not indicating heart injury, and the blood test for clots (pulmonary embolism) was normal, meaning it is highly unlikely you have a blood clot in your lungs. Your chest xray does show some possible signs of viral infection, and a covid test was sent that will results in a couple days. Please stay home and get lots of rest and drink fluids. Plan to make a follow up appointment with your primary doctor. Return to the ED if you have worsening shortness of breath, develop fever with temp >100.4 by mouth or armpit thermometer, or if you have any other new or worsening symptoms of concern to you.
[2021-04-06 21:55] LABS: BASOPHILS % (AUTO) 0.3 %; EOSINOPHILS # (AUTO) 0.2 10^3/uL (0.0-0.7); EOSINOPHILS % (AUTO) 2.4 %; HCT - HEMATOCRIT 40.7 % (37.0-47.0); HGB - HEMOGLOBIN 13.1 g/dL (12.0-16.0); LYMPHOCYTES % (AUTO) 40.4 %; MEAN CORPUSCULAR HEMOGLOBIN 29.9 pg (27.0-31.0); MEAN CORPUSCULAR HGB CONC 32.2 g/dL (32.0-36.0); MEAN CORPUSCULAR VOLUME 92.9 fL (81.0-99.0); MEAN PLATELET VOLUME 9.4 fL (7.9-10.8); MONOCYTES # (AUTO) 0.6 10^3/uL (0.0-1.0); MONOCYTES % (AUTO) 7.8 %; NEUTROPHILS # (AUTO) 3.6 10^3/uL (1.5-6.6); NEUTROPHILS % (AUTO) 48.7 %; PLT - PLATELET COUNT 374 10^3/uL (130-450); RED BLOOD COUNT 4.38 10^6/uL (4.20-5.40); RED CELL DISTRIBUTION WIDTH 14.2 % (12.0-15.0); WHITE BLOOD COUNT 7.4 x10^3/uL (4.8-10.8)
[2021-04-06 21:57] LABS: VBG PCO2 37.3 mmHg (41-51); VBG PH 7.383 (7.31-7.41)
[2021-04-06 21:58] LABS: VBG BASE EXCESS -2.9 mmol/L (-2 - +2); VBG HCO3 21.7 mmol/L (23-28); VBG OXYGEN SATURATION 96.6 % (60-80); VBG TOTAL CO2 22.9 mmol/L (24-29)
--- NOTE | 2021-04-06 22:14 | XRAY Report ---
PROCEDURE: Chest 1 View X-Ray INDICATIONS: Chest Pain TECHNIQUE: One view of the chest was acquired. COMPARISON: Chest x-ray 09/15/2018 FINDINGS: Surgical changes and devices: None. Lungs and pleura: The left costophrenic angle is not fully included within the [id number]. There i s an overall appearance of mild increased vascularity. Mediastinum: Mediastinal contours appear normal. Heart size is at the upper limits of normal. Bones and chest wall: No suspicious bony lesions. Overlying soft tissues appear unremarkable. IMPRESSION: Mild increased vascularity suggestive of edema. There is suspected trace blunting of the left costoph renic angle, although not fully included within the [id number] and of limited evaluation. Reviewed by: Inocencia Duncan MD on 04/06/2021 10:13 PM [facility] Approved by: Inocencia Duncan MD on 04/06/2021 10:13 PM [facility] Station ID: [id number]
[2021-04-06 22:28] LABS: ALBUMIN 3.9 g/dL (3.2-5.5); ALBUMIN/GLOBULIN RATIO 1.3 (1.0-2.2); BILIRUBIN,TOTAL 0.3 mg/dL (0.2-1.0); CALCIUM 9.7 mg/dL (8.5-10.3); CREATININE 1.1 mg/dL (0.4-1.0); TOTAL PROTEIN 6.8 g/dL (6.7-8.2)
[2021-04-06 23:20] VITALS: BP 127/70
== END 2021-04-06 23:42 | disposition home or self-care (01) ==
LOC: ED 21:11
DX: R07.1 Chest pain on breathing (principal); R06.02 Shortness of breath; R07.0 Pain in throat; R09.82 Postnasal drip; Z87.891 Personal history of nicotine dependence; Z20.822 Contact with and (suspected) exposure to COVID-19
CPT/HCPCS: 36415; 71045; 80053; 82803; 83690; 84484; 85025; 85379; 93005; 99284; U0004

== ENCOUNTER 2021-05-15 10:09 | Outpatient (CLI) | payer MEDICARE, MEDICAID ==
--- NOTE | 2021-05-15 15:52 | XRAY Report ---
PROCEDURE: Chest 2 View X-Ray INDICATIONS: COUGH,CHEST PRESSURE TECHNIQUE: 2 view(s) of the chest. COMPARISON: None. FINDINGS: Surgical changes and devices: None. Lungs and pleura: No pleural effusions or pneumothorax. Subtle increased opacity in left infrahilar region is seen concerning for developing left lingular infiltrate. Right lung is clear. Mediastinum: Mediastinal contours are normal. Heart size is normal. Bones and chest wall: No suspicious bony abnormalities. Soft tissues appear unremarkable. IMPRESSION: Finding may represent developing left lingular infiltrate. Right lung is clear. No pleur al effusion or pneumothorax. Reviewed by: Kel Xiong MD on 05/15/2021 3:50 PM PST Approved by: Kel Xiong MD on 05/15/2021 3:50 PM PST Station ID: [id number]
== END 2021-05-15 10:10 | disposition home or self-care (01) ==
LOC: DI 10:09
PROVIDERS: ATTEND Physician Assistant
DX: R05.9 Cough, unspecified (principal); R06.2 Wheezing; R07.89 Other chest pain; R91.8 Other nonspecific abnormal finding of lung field

== ENCOUNTER 2021-09-12 14:40 | Emergency (ER) | payer MEDICARE, MEDICAID ==
[2021-09-12 15:15] LABS: BASOPHILS % (AUTO) 0.3 %; EOSINOPHILS # (AUTO) 0.6 10^3/uL (0.0-0.7); EOSINOPHILS % (AUTO) 6.2 %; HCT - HEMATOCRIT 43.1 % (37.0-47.0); HGB - HEMOGLOBIN 14.4 g/dL (12.0-16.0); LYMPHOCYTES # (AUTO) 2.6 10^3/uL (1.5-3.5); LYMPHOCYTES % (AUTO) 28.2 %; MEAN CORPUSCULAR HEMOGLOBIN 30.8 pg (27.0-31.0); MEAN CORPUSCULAR HGB CONC 33.4 g/dL (32.0-36.0); MEAN CORPUSCULAR VOLUME 92.1 fL (81.0-99.0); MEAN PLATELET VOLUME 9.2 fL (7.9-10.8); MONOCYTES # (AUTO) 0.6 10^3/uL (0.0-1.0); MONOCYTES % (AUTO) 6.3 %; NEUTROPHILS # (AUTO) 5.4 10^3/uL (1.5-6.6); NEUTROPHILS % (AUTO) 58.3 %; PLT - PLATELET COUNT 377 10^3/uL (130-450); RED BLOOD COUNT 4.68 10^6/uL (4.20-5.40); RED CELL DISTRIBUTION WIDTH 13.9 % (12.0-15.0); WHITE BLOOD COUNT 9.2 x10^3/uL (4.8-10.8)
[2021-09-12 15:30] LABS: ALBUMIN 4.2 g/dL (3.2-5.5); ALBUMIN/GLOBULIN RATIO 1.2 (1.0-2.2); ALKALINE PHOSPHATASE 78 IU/L (42-121); ALT ALANINE AMINOTRANSFERASE 17 IU/L (10-60); AST ASPARTATE AMINOTRANSFERASE 19 IU/L (10-42); BILIRUBIN,TOTAL < 0.2 mg/dL (0.2-1.0); BUN - BLOOD UREA NITROGEN 19 mg/dL (6-20); CALCIUM 9.9 mg/dL (8.5-10.3); CARBON DIOXIDE - CO2 23 mmol/L (21-32); CHLORIDE 105 mmol/L (101-111); CREATININE 0.8 mg/dL (0.4-1.0); GFR - MDRD 72 (>89); GLUCOSE 131 mg/dL (70-100); LIPASE 50 U/L (22-51); SODIUM 137 mmol/L (135-145); TOTAL PROTEIN 7.6 g/dL (6.7-8.2)
--- NOTE | 2021-09-12 15:49 | XRAY Report ---
PROCEDURE: Chest 1 View X-Ray INDICATIONS: Chest Pain COMMENTS: Chest pain/ Pt states slight chest andback pain with dyspnea, hx of pneumonia PRIORS: 05/15/21, 04/06/21 TECHNIQUE: One view of the chest was acquired. COMPARISON: 05/15/2021 FINDINGS: Surgical changes and devices: None. Lungs and pleura: No pleural effusions or pneumothorax. Lungs are clear. Mediastinum: Mediastinal contours appear normal. Heart size is normal. Bones and chest wall: The thoracic spine has degenerative changes with rightward curvature. No suspic ious bony lesions. Overlying soft tissues appear unremarkable. IMPRESSION: No acute cardiopulmonary abnormality. Reviewed by: Lewis Mcdaniels on 09/12/2021 2:47 PM TRAM Approved by: Lewis Mcdaniels on 09/12/2021 2:47 PM TRAM Station ID: [id number]
--- NOTE | 2021-09-12 16:01 | ED Physician Documentation ---
History of Present Illness - Stated complaint Stated Complaint: SOB/CHEST HEAVY - Chief complaint Chief Complaint: Resp - Additonal information Additional information: 66-year-old female who is a former smoker presents the emergency department for evaluation of worsening chest pain and chest pressure. Reports about 6 months ago she was treated for a walking pneumonia. She felt like the symptoms never fully resolved but over the last few days she has had increasing pressure and heaviness in her chest. She has mostly a dry cough. No fevers. Sometimes the chest pain is reproducible on movement but she states it feels different than she is ever had before. No syncope. No unilateral leg swelling. No orthopnea. She states that intermittently over the last few months she often gets a laryngitis especially at the end of the day. It usually is resolved by the morning She does have a history of bipolar disorder. Also has sleep apnea for which she uses oxygen at nighttime only. She quit smoking in April 2019. She states t hat she does not carry a diagnosis of COPD or asthma. She states that in [place] last year she had a full cardiac work-up that included a stress test and echocardiogram that she reports as normal to this provider. Review of Systems Constitutional: denies: Fever, Chills Eyes: reports: Reviewed and negative Ears: reports: Reviewed and negative Nose: reports: Reviewed and negative Throat: reports: Reviewed and negative Cardiac: reports: Chest pain / pressure. 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 : None HEENT: None Psych: Bipolar disorder - Past Surgical History Past Surgical History: Yes General: Cholecystectomy, Gastric surgery - Present Medications Home Medications: Ambulatory Orders Medication Instructions Recorded Confirmed Benztropine Mesylate 0.5 mg ORAL BID 01/28/18 09/12/21 Lamotrigine [Lamotrigine ER] 100 mg PO DAILY 01/28/18 09/12/21 QUEtiapine [SEROquel] 200 mg PO QPM 01/28/18 09/12/21 clonazePAM [Clonazepam] 1 mg PO DAILY PRN 01/28/18 09/12/21 - Allergies Allergies/Adverse Reactions: Allergies Allergy/AdvReac Type Severity Reaction Status Date / Time codeine Allergy Edema Verified 09/12/21 14:53 moxifloxacin [From Avelox] Allergy Anaphylaxis Verified 09/12/21 14:53 red dye Allergy Hives Verified 09/12/21 14:53 - Social History Does the pt smoke?: No Smoking Status: Former smoker Does the pt drink ETOH?: No Does the pt have substance abuse?: No - POLST Patient has POLST: No PD ED PE NORMAL - General General: Alert and oriented X 3, No acute distress, Well developed/nourished (obese) - HEENT HEENT: Atraumatic, Ears normal, Moist mucous membranes - Neck Neck: Supple, no meningeal sign, No adenopathy, No JVD - Cardiac Cardiac: RRR, No murmur - Respiratory Respiratory: No respiratory distress - Abdomen Abdomen: Normal bowel sounds, Soft, Non tender - Back Back: No CVA TTP, No spinal TTP - Derm Derm: Normal color, Warm and dry, No rash - Extremities Extremities: No deformity - Neuro Neuro: Alert and oriented X 3, console assembler 2-12 intact Eye Opening: Spontaneous Motor: Obeys Commands Verbal: Oriented GCS Score: 15 Results - Vitals Vitals: Vital Signs - 24 hr 09/12/21 14:46 Temperature 36.0 C L Heart Rate 88 Respiratory 20 Rate Blood Pressure 149/121 H O2 Saturation 96 Oxygen O2 Source Room air - EKG (time done) 1458 Rate: Rate (enter#) (84) Rhythm: NSR Graham: Normal Intervals: Normal MO QRS: Normal Ischemia: Normal ST segments Compare to prior EKG: Old EKG unavailable Computer interpretation: Agree with computer - Labs Labs: Laboratory Tests 09/12/21 09/12/21 09/12/21 15:11 15:11 15:11 WBC 9.2 RBC 4.68 Hgb 14.4 Hct 43.1 MCV 92.1 MCH 30.8 MCHC 33.4 RDW 13.9 Plt Count 377 MPV 9.2 Neut # (Auto) 5.4 Lymph # (Auto) 2.6 [place] # (Auto) 0.6 Eos # (Auto) 0.6 Baso # (Auto) 0.0 Absolute Nucleated RBC 0.00 Nucleated RBC % 0.0 Sodium 137 Potassium 4.0 Chloride 105 Carbon Dioxide 23 Anion Gap 9.0 BUN 19 Creatinine 0.8 Estimated GFR (MDRD) 72 L Glucose 131 H Calcium 9.9 Total Bilirubin < 0.2 L AST 19 ALT 17 Alkaline Phosphatase 78 Troponin I High Sens 3.5 Total Protein 7.6 Albumin 4.2 Globulin 3.4 Albumin/Globulin Ratio 1.2 Lipase 50 - Rads (name of study) cxr Radiology: Final report received (No acute cardiopulmonary abnormality) PD MEDICAL DECISION MAKING - ED course Complexity details: re-evaluated patient, considered differential, d/w patient ED course: 66-year-old female comes to the emergency department for evaluation of recurrent chest pain and pressure. She also has been having intermittent laryngitis for the last few months. She states it started after she was diagnosed with pneumonia which she does not think fully resolved. Here in the emergency department she appears very well. Unremarkable cardiopulmonary auscultation. No hypoxia. Screening chest x-ray is without acute focal findings. EKG, screening labs and high-sensitivity troponin are all essentially negative. She reports to me that about 1 year ago in [place] she had a negative echocardiogram and stress test though I am not privy to those results. At this time I suspect that when etiology of her symptoms may be silent acid reflux at night. She may benefit from repeat EGD or referral to ENT for further visualization of her vocal cords. She is encouraged to continue the use of omeprazole at night as well as her CPAP machine but to avoid eating foods about 2 to 3 hours before bedtime. She will continue to follow-up with her primary care provider as well as the previous founder ceo & president that she has seen. Emergent return precautions were discussed for worsening symptoms. Departure - Departure Disposition: 01 Home, Self Care Clinical Impression: Hoarseness or changing voice Chest pain Qualifiers: Chest pain type: unspecified Qualified Code(s): R07.9 - Chest pain, unspecified Condition: Stable Record reviewed to determine appropriate education?: Yes Comments: Eli you are seen today in the emergency department because you have been reporting increased chest pressure as well as a change in your voice. You reported to me that you had negative cardiac testing about a year ago. I do encourage you to continue close follow-up with your founder ceo & president to determine if repeat evaluation or testing is necessary. But as you reported history of gastritis as well as sleep apnea night I do wonder if perhaps the cause of your symptoms could be silent acid reflux. Please continue to follow-up with your grain blender. You may benefit from repeat EGD where they placed a camera into your esophagus and stomach to look for erosions. A referral to an ear nose throat doctor may also be beneficial in helping diagnose the hoarse quality to your voice. Evaluation for things such as polyp on the vocal cords may be helpful. If at any point you develop sudden severe shortness of breath and cannot breathe, have any fainting episodes or fevers and please return to the ER for second evaluation.
[2021-09-12 17:10] VITALS: BP 145/90
== END 2021-09-12 17:10 | disposition home or self-care (01) ==
LOC: ED 14:40
DX: R07.9 Chest pain, unspecified (principal); R49.0 Dysphonia; G47.30 Sleep apnea, unspecified; Z99.81 Dependence on supplemental oxygen; Z87.891 Personal history of nicotine dependence; Z87.01 Personal history of pneumonia (recurrent)
CPT/HCPCS: 36415; 80053; 83690; 84484; 85025; 93005; 99283; 99284

== ENCOUNTER 2022-01-31 08:49 | Emergency (ER) | payer MEDICARE, MEDICAID ==
--- NOTE | 2022-01-31 09:33 | XRAY Report ---
PROCEDURE: Chest 1 View X-Ray INDICATIONS: Short of breath TECHNIQUE: One view of the chest was acquired. COMPARISON: 09/12/2021, 05/15/2021, 04/06/2021 FINDINGS: Surgical changes and devices: Cholecystectomy clips are seen. Lungs and pleura: No pleural effusions or pneumothorax. Lungs are clear. Mediastinum: Mediastinal contours appear normal. Heart size is normal. There is a moderate hiatal hernia seen, with an air-fluid level seen. Bones and chest wall: No suspicious bony lesions. Age-appropriate degenerative changes are seen. O verlying soft tissues appear unremarkable. IMPRESSION: An acute abnormality is not seen by plain film. Additional findings: Moderate hiatal hernia with an air-fluid level Cholecystectomy clips Reviewed by: Devendra Rodriguez MD on 01/31/2022 8:32 AM [facility] Approved by: Devendra Rodriguez MD on 01/31/2022 8:32 AM [facility] Station ID: [id number]
[2022-01-31 10:08] LABS: B. PARAPERTUSSIS- RESP PCR PAN NOT DETECTED; B. PERTUSSIS- RESP PCR PANEL NOT DETECTED; C. PNEUMONIAE- RESP PCR PANEL NOT DETECTED; CORONAVIRUS 229E-RESP PCR NOT DETECTED; CORONAVIRUS HKU1-RESP PCR NOT DETECTED; CORONAVIRUS NL63-RESP PCR NOT DETECTED; CORONAVIRUS OC43-RESP PCR NOT DETECTED; HUMAN METAPNEUMOVIRUS NOT DETECTED; INFLUENZA A- RESP PCR PANEL NOT DETECTED; INFLUENZA B - RESP PCR PANEL NOT DETECTED; M. PNEUMONIAE- RESP PCR PANEL NOT DETECTED; PARAINFLUENZA VIRUS 1 NOT DETECTED; PARAINFLUENZA VIRUS 2 NOT DETECTED; PARAINFLUENZA VIRUS 3 NOT DETECTED; PARAINFLUENZA VIRUS 4 NOT DETECTED; RHINOVIRUS/ENTEROVIRUS NOT DETECTED; RSV- RESP PCR PANEL NOT DETECTED; SARS-CoV-2 -RESP PCR PANEL NOT DETECTED
--- NOTE | 2022-01-31 12:28 | ED Physician Documentation ---
PD HPI URI - Stated complaint Stated Complaint: SOA, BREATHING ISSUSES - Chief complaint Chief Complaint: Resp - History obtained from History obtained from: Patient - History of Present Illness Timing - onset: How many weeks ago (4) Timing duration: Weeks (4) Timing details: Abrupt onset, Still present Associated symptoms: Fever (initially), Nasal congestion, Productive cough, Dyspnea, NVD. No: Sore throat, Chest pain Contributing factors: COPD / asthma. No: Sick contact Similar symptoms before: Has not had sx before Recently seen: Clinic (initially seen by PCP and Rx with Augmentin and Zithromax with some improvement but then return of symptoms. Was not given inhaler nor steroids.) Review of Systems Constitutional: reports: Fever, Fatigue Nose: reports: Congestion Throat: denies: Sore throat Cardiac: denies: Chest pain / pressure, Palpitations Respiratory: reports: Dyspnea (with even light activity.), Cough, Wheezing GI: denies: Nausea, Vomiting, Diarrhea Musculoskeletal: denies: Extremity swelling Neurologic: reports: Generalized weakness. denies: Focal weakness, Numbness PD PAST MEDICAL HISTORY - Past Medical History Cardiovascular: None Respiratory: Sleep apnea, CPAP use Neuro: None Endocrine/Autoimmune: None GI: Hiatal hernia, Diverticulitis SEAMAN: None : None HEENT: None Psych: Bipolar disorder - Past Surgical History Past Surgical History: Yes General: Cholecystectomy, Gastric surgery - Present Medications Home Medications: Ambulatory Orders Medication Instructions Recorded Confirmed Benztropine Mesylate 0.5 mg ORAL BID 01/28/18 09/12/21 Lamotrigine [Lamotrigine ER] 100 mg PO DAILY 01/28/18 09/12/21 QUEtiapine [SEROquel] 200 mg PO QPM 01/28/18 09/12/21 clonazePAM [Clonazepam] 1 mg PO DAILY PRN 01/28/18 09/12/21 Albuterol Sulf [Ventolin Hfa 2 - 3 puffs INH QID #1 each 01/31/22 Inhaler] Benzonatate [Tessalon] 100 mg PO TID PRN #20 cap 01/31/22 Doxycycline Hyclate 100 mg PO BID 7 Days #14 cap 01/31/22 dexAMETHasone [Decadron] 4 mg PO DAILY #5 tablet 01/31/22 - Allergies Allergies/Adverse Reactions: Allergies Allergy/AdvReac Type Severity Reaction Status Date / Time codeine Allergy Edema Verified 01/31/22 09:06 moxifloxacin [From Avelox] Allergy Anaphylaxis Verified 01/31/22 09:06 red dye Allergy Hives Verified 01/31/22 09:06 - Social History Does the pt smoke?: No Smoking Status: Former smoker Does the pt drink ETOH?: No Does the pt have substance abuse?: No - POLST Patient has POLST: No PD ED PE NORMAL - Vitals Vital signs reviewed: Yes - General General: Alert and oriented X 3, No acute distress, Well developed/nourished - HEENT HEENT: Pharynx benign - Neck Neck: Supple, no meningeal sign, No adenopathy - Cardiac Cardiac: RRR, No murmur - Respiratory Respiratory: No respiratory distress, Clear bilaterally - Abdomen Abdomen: Soft, Non tender - Derm Derm: Normal color, Warm and dry - Neuro Neuro: Alert and oriented X 3, No motor deficit, Normal speech Results - Vitals Vitals: Oxygen O2 Source Room air - Labs Labs: Laboratory Tests 01/31/22 09:06 Nasal Adenovirus (PCR) NOT DETECTED Nasal B. parapertussis DNA (PCR) NOT DETECTED Nasal Coronavir 229E PCR NOT DETECTED Nasal Coronavir HKU1 PCR NOT DETECTED Nasal Coronavir NL63 PCR NOT DETECTED Nasal Coronavir OC43 PCR NOT DETECTED Nasal Enterovir/Rhinovir PCR NOT DETECTED Nasal Influenza B PCR NOT DETECTED Nasal Influenza A PCR NOT DETECTED Nasal Parainfluen 1 PCR NOT DETECTED Nasal Parainfluen 2 PCR NOT DETECTED Nasal Parainfluen 3 PCR NOT DETECTED Nasal Parainfluen 4 PCR NOT DETECTED Nasal RSV (PCR) NOT DETECTED Nasal B.pertussis DNA PCR NOT DETECTED Nasal C.pneumoniae (PCR) NOT DETECTED Jose R Human Metapneumo PCR NOT DETECTED Nasal M.pneumoniae (PCR) NOT DETECTED Nasal SARS-CoV-2 (PCR) NOT DETECTED - Rads (name of study) chest xray Radiology: Prelim report reviewed (no inifltrates), See rad report PD MEDICAL DECISION MAKING - ED course Complexity details: considered differential (has had dyspnea and cough for over 4 weeks. Initially felt ill and has continued with malaise. Likely post viral cough and bronchial irritation but consider secondary bronchitis/pneumonia. Can get CXR to ensure no obvious other. ), d/w patient Departure - Departure Disposition: 01 Home, Self Care Clinical Impression: Persistent cough for 3 weeks or longer, Lower resp. tract infection Condition: Stable Record reviewed to determine appropriate education?: Yes Instructions: ED Bronchitis Asthmatic Prescriptions: dexAMETHasone [Decadron] 4 mg PO DAILY #5 tablet Doxycycline Hyclate 100 mg PO BID 7 Days #14 cap Benzonatate [Tessalon] 100 mg PO TID PRN #20 cap PRN Reason: Cough Albuterol Sulf [Ventolin Hfa Inhaler] 2 - 3 puffs INH QID #1 each Comments: Your respiratory PCR test today is negative, including negative for COVID, RSV, flu, parainfluenza and several other viruses. Your chest x-ray is also clear at this time so the previous pneumonia seems to have cleared. However it does sound like you still have some persistent bronchial irritation. There may be still some residual infection though it might be just inflammatory at this time. I would suggest using albuterol inhaler 2 to 3 puffs 4 times daily for the next 7 to 10 days at least. Also Decadron steroid for bronchial inflammation. Add benzonatate if needed for cough. Considering possible residual infection, I would also add doxycycline antibiotic twice daily for a week. I transmitted these prescriptions to your preferred pharmacy, [facility]. Recheck if not improving well over the next 3 to 5 days. Discharge Date/Time: 01/31/22 13:36
[2022-01-31 12:48] VITALS: BP 140/80
[2022-01-31] MEDS: BENZONATATE 100 MG CAPSULE PO STA (13:04)
[2022-01-31] MEDS: CHERRY SYRUP 10 ML UDC PO ONE (13:04)
[2022-01-31] MEDS: DOXYCYCLINE 100 MG TABLET PO STA (13:04)
[2022-01-31] MEDS: DEXAMETHASONE 10 MG/ML VIAL PO STA (13:04)
[2022-01-31] MEDS: ALBUTEROL 1 PUFF INH STA (13:17)
== END 2022-01-31 13:36 | disposition home or self-care (01) ==
LOC: ED 08:49
DX: J22 Unspecified acute lower respiratory infection (principal); R05.3 Chronic cough; Z87.891 Personal history of nicotine dependence; Z20.822 Contact with and (suspected) exposure to COVID-19
CPT/HCPCS: 71045; 87633; 94640; 99283; 99284; A9270

== ENCOUNTER 2022-02-26 09:00 | Outpatient (CLI) | payer MEDICARE, MEDICAID ==
--- NOTE | 2022-03-04 13:02 | Mammography Report ---
BILATERAL DIGITAL SCREENING MAMMOGRAM 3D/2D: 02/26/2022 CLINICAL: Routine screening. Family history of breast cancer. Comparison is made to exams dated: 07/17/2018 mammogram - [facility], 06/09/2017 mammogram - [facility], 01/28/2016 mammogram, and 06/14/2013 mammogram - [facility]. There are scattered areas of fibroglandular density in both breasts (category b / 25%-50% glandular t issue). No significant masses, calcifications, or other findings are seen in either breast. There has been no significant interval change. IMPRESSION: NEGATIVE There is no mammographic evidence of malignancy. A 1 year screening mammogram is recommended. Based on the Tyrer Cuzick model (a risk assessment model) the patients lifetime risk is 13.8% and he r 10 year risk is 7.4%. According to the ACR, ACS, and NCCN guidelines, an annual breast MRI exam ankita ng with mammogram is recommended if the patients lifetime risk is 20% or greater. This exam was interpreted at Station ID: [id number]. NOTE: For mammograms, a report in lay terms will be sent to the patient. Approximately 15% of breast malignancies will not be visualized mammographically. In the management of a palpable breast mass, a negative mammogram must not discourage biopsy of a clinically suspicious lesion. Electronically Signed By: Jerson [email or web address]:03/03/2022 17:32:14 ACR BI-RADS Category 1: Negative 3341F PARENCHYMAL PATTERN: (A) - The breast(s) demonstrate(s) scattered fibroglandular densities. BI-RADS CATEGORY: (1) - 1 RECOMMENDATION: (ANNUAL) - Recommend routine annual screening mammography. [id number] 1 year screening LATERALITY: (B)
== END 2022-02-26 09:01 | disposition home or self-care (01) ==
LOC: DI 09:00
PROVIDERS: ATTEND Physician Assistant
DX: Z12.31 Encounter for screening mammogram for malignant neoplasm of breast (principal); Z80.3 Family history of malignant neoplasm of breast

== ENCOUNTER 2022-02-26 09:01 | Outpatient (CLI) | payer MEDICARE, MEDICAID ==
--- NOTE | 2022-02-26 09:43 | XRAY Report ---
PROCEDURE: Knee 3 View RT INDICATIONS: RIGHT KNEE PAIN TECHNIQUE: 3 views of the right knee(s) were acquired. COMPARISON: None. FINDINGS: Bones: No fractures or dislocations. Mild to moderate tricompartmental osteoarthritis is seen most n otably in medial femoral tibial compartment. No suspicious bony lesions. Soft tissues: No significant joint effusion. No suspicious soft tissue calcifications. IMPRESSION: Mild to moderate tricompartmental osteoarthritis as above. No fracture or dislocation. N o significant joint effusion. Reviewed by: Kel Xiong MD on 02/26/2022 9:42 AM PST Approved by: Kel Xiong MD on 02/26/2022 9:42 AM PST Station ID: [id number]
== END 2022-02-26 09:02 | disposition home or self-care (01) ==
LOC: DI 09:01
PROVIDERS: ATTEND Physician Assistant
DX: M17.11 Unilateral primary osteoarthritis, right knee (principal)

== ENCOUNTER 2022-03-06 10:35 | Emergency (ER) | payer MEDICARE, MEDICAID ==
--- NOTE | 2022-03-06 11:50 | XRAY Report ---
PROCEDURE: Chest 2 View X-Ray INDICATIONS: Productive cough with SOA. TECHNIQUE: 2 views of the chest were acquired. COMPARISON: 01/31/2022 FINDINGS: Surgical changes and devices: Surgical clips noted in the right upper quadrant Lungs and pleura: No pleural effusions or pneumothorax. Lungs are clear. Mediastinum: Mediastinal contours are normal. Heart size is normal. Moderate hiatal hernia noted Bones and chest wall: No suspicious bony abnormalities. Soft tissues appear unremarkable. IMPRESSION: Moderate hernia without acute cardiopulmonary findings Reviewed by: Paramjit Estrada MD on 03/06/2022 10:48 AM [facility] Approved by: Paramjit Estrada MD on 03/06/2022 10:48 AM [facility] Station ID: [id number]
[2022-03-06 13:35] VITALS: BP 138/72
[2022-03-06] MEDS ORDERED: DEXAMETHASONE 10 MG/ML VIAL PO STA (13:42)
[2022-03-06] MEDS ORDERED: CHERRY SYRUP 10 ML UDC PO ONE (13:42)
[2022-03-06] MEDS ORDERED: IPRATROPIUM/ALBUTEROL 3 ML NEB INH STA (13:42)
[2022-03-06] MEDS ORDERED: HYDROcod/ACETAM 5/325 MG TABLET PO STA (13:42)
[2022-03-06] MEDS ORDERED: BENZONATATE 100 MG CAPSULE PO STA (13:42)
[2022-03-06] MEDS ORDERED: AMOX/CLAV 875 MG/125 MG TABLET PO STA (13:43)
--- NOTE | 2022-03-06 14:03 | ED Physician Documentation ---
PD HPI URI - Stated complaint Stated Complaint: SOA/BACK PX - Chief complaint Chief Complaint: Resp - History obtained from History obtained from: Patient - History of Present Illness Timing - onset: How many weeks ago (couple) Timing duration: Weeks (couple) Timing details: Gradual onset, Waxing and waning (she improved with meds of Albuterol, steroids, doxy, and tessalon when seen in ER about 1 month ago. But then symptoms back again after meds done. return of productive cough and wheezing,dsypnea the past 2 weeks.) Associated symptoms: Chills, Productive cough, Chest pain (with coughing, sternal area and also scapular area.), Dyspnea. No: Nasal congestion, Sore throat, Hemoptysis Contributing factors: Unimmunized, COPD / asthma. No: Sick contact, Immunocompromised Similar symptoms before: Diagnosis (similar to prior pneumonias) Recently seen: Emergency Dept (1 month ago for similar. Had outpt knee xray and mammogram done 4 days ago and has not heard result as yet.) Review of Systems Constitutional: reports: Myalgias, Fatigue. denies: Fever Nose: denies: Rhinorrhea / runny nose, Congestion Throat: denies: Sore throat Cardiac: reports: Chest pain / pressure. denies: Palpitations, Pedal edema, Calf pain Respiratory: reports: Dyspnea, Cough, Wheezing. denies: Hemoptysis GI: denies: Vomiting, Diarrhea Neurologic: reports: Generalized weakness. denies: Headache PD PAST MEDICAL HISTORY - Past Medical History Cardiovascular: None Respiratory: Asthma, Sleep apnea, CPAP use Neuro: None Endocrine/Autoimmune: None GI: Hiatal hernia, Diverticulitis COMMUNITY SPECIALIST: None : None HEENT: None Psych: Bipolar disorder - Past Surgical History Past Surgical History: Yes General: Cholecystectomy, Gastric surgery - Present Medications Home Medications: Ambulatory Orders Medication Instructions Recorded Confirmed Benztropine Mesylate 0.5 mg ORAL BID 01/28/18 09/12/21 Lamotrigine [Lamotrigine ER] 100 mg PO DAILY 01/28/18 09/12/21 QUEtiapine [SEROquel] 200 mg PO QPM 01/28/18 09/12/21 clonazePAM [Clonazepam] 1 mg PO DAILY PRN 01/28/18 09/12/21 Albuterol Sulf [Ventolin Hfa 2 - 3 puffs INH QID #1 each 01/31/22 Inhaler] Benzonatate [Tessalon] 100 mg PO TID PRN #20 cap 01/31/22 Doxycycline Hyclate 100 mg PO BID 7 Days #14 cap 01/31/22 dexAMETHasone [Decadron] 4 mg PO DAILY #5 tablet 01/31/22 Albuterol Sulf [Ventolin Hfa 2 - 3 puffs INH Q4HR PRN #1 each 03/06/22 Inhaler] Amox/Clav 875/125 [Augmentin] 1 each PO Q12H #14 tablet 03/06/22 Benzonatate [Tessalon] 100 mg PO TID PRN #20 cap 03/06/22 dexAMETHasone [Decadron] 4 mg PO DAILY #7 tablet 03/06/22 - Allergies Allergies/Adverse Reactions: Allergies Allergy/AdvReac Type Severity Reaction Status Date / Time codeine Allergy Edema Verified 03/06/22 10:51 moxifloxacin [From Avelox] Allergy Anaphylaxis Verified 03/06/22 10:51 red dye Allergy Hives Verified 03/06/22 10:51 - Social History Does the pt smoke?: No Smoking Status: Former smoker Does the pt drink ETOH?: No Does the pt have substance abuse?: No - POLST Patient has POLST: No PD ED PE NORMAL - Vitals Vital signs reviewed: Yes - General General: Alert and oriented X 3, No acute distress, Well developed/nourished - HEENT HEENT: Ears normal, Moist mucous membranes, Pharynx benign - Neck Neck: Supple, no meningeal sign, No adenopathy - Cardiac Cardiac: RRR, No murmur - Respiratory Respiratory: No respiratory distress. No: Clear bilaterally (general expiratory wheeze. No coarse nor fine crackles. ) - Abdomen Abdomen: Normal bowel sounds, Soft, Non distended, Other (mild epigastric tenderness without guarding. Not tender RUQ itself. ) - Derm Derm: Normal color, Warm and dry - Extremities Extremities: No edema, No calf tenderness / cord - Neuro Neuro: No motor deficit, No sensory deficit Results - Vitals Vitals: Vital Signs - 24 hr 03/06/22 03/06/22 03/06/22 10:43 10:51 13:35 Temperature 36.9 C 36.9 C 36.8 C Heart Rate 78 78 76 Respiratory 16 16 16 Rate Blood Pressure 145/74 H 145/74 H 138/72 H O2 Saturation 95 95 96 03/06/22 14:14 Temperature Heart Rate 89 Respiratory 16 Rate Blood Pressure O2 Saturation Oxygen O2 Source Room air - EKG (time done) 11:00 Rate: Rate (enter#) (80) Rhythm: NSR [place]: Normal Intervals: Normal GA QRS: Normal Ischemia: Normal ST segments. No: ST elevation c/w ischemia, ST depression - Rads (name of study) chest xray Radiology: Prelim report reviewed (moderate hiatal hernia; no lung abnormality .), See rad report PD Medical Decision Making - ED course Complexity details: reviewed results, considered differential (recurrent cough productive, with wheezing. Had improved reasonably with abx/steroid/inhaler, but symptoms back. Can try routine again with different abx given her underlying asthma/COPD process. ), d/w patient Departure - Departure Disposition: 01 Home, Self Care Clinical Impression: Upper back pain, Mild persistent asthmatic bronchitis with acute exacerbation Condition: Stable Record reviewed to determine appropriate education?: Yes Instructions: ED Bronchitis Asthmatic Follow-Up: GREYSON MEZA PA-C [Primary Care Provider] - Prescriptions: Albuterol Sulf [Ventolin Hfa Inhaler] 2 - 3 puffs INH Q4HR PRN #1 each PRN Reason: Shortness Of Air/Wheezing Amox/Clav 875/125 [Augmentin] 1 each PO Q12H #14 tablet dexAMETHasone [Decadron] 4 mg PO DAILY #7 tablet Benzonatate [Tessalon] 100 mg PO TID PRN #20 cap PRN Reason: Cough Comments: Your chest x-ray is clear without any signs of pneumonia. Your EKG is normal without any signs of heart ischemia or heart attack. You do have significant wheezing. I think your tightness in shortness of breath relate to the bronchial asthma. This can be precipitated by an infection and since you had improvement with the doxycycline in combination with the steroid inhaler last time, we can go with a combination of the inhaler steroid and a different antibiotic this time. Recheck if not improved well over the next week. Make an appoint with your primary care for follow-up for about 1 to 2 weeks from now. They may want to initiate longer-term inhalers for asthma type symptoms. I transmitted prescriptions to [facility] pharmacy. Discharge Date/Time: 03/06/22 14:19
== END 2022-03-06 14:19 | disposition home or self-care (01) ==
LOC: ED 10:35
DX: M54.6 Pain in thoracic spine (principal); J45.31 Mild persistent asthma with (acute) exacerbation; Z87.891 Personal history of nicotine dependence
CPT/HCPCS: 71046; 93005; 94640; 99283; 99284; A9270

== ENCOUNTER 2022-04-29 11:40 | Emergency (ER) | payer MEDICARE, MEDICAID ==
[2022-04-29 11:54] VITALS: BP 149/117
--- NOTE | 2022-04-29 12:08 | ED Physician Documentation ---
PD HPI HEENT - Stated complaint Stated Complaint: EAR PX - Chief complaint Chief Complaint: Heent - History obtained from History obtained from: Patient (She has had bilateral ear pain, right worse than left and right here hearing loss for the last week associated with a cough and nasal congestion. No fevers.) PD PAST MEDICAL HISTORY - Past Medical History Past Medical History: Yes Cardiovascular: None Respiratory: Asthma, Sleep apnea, CPAP use Neuro: None Endocrine/Autoimmune: None GI: Hiatal hernia, Diverticulitis BRAND REPRESENTATIVE: None : None HEENT: None Psych: Bipolar disorder Musculoskeletal: None Derm: None - Past Surgical History Past Surgical History: Yes General: Cholecystectomy, Gastric surgery - Present Medications Home Medications: Ambulatory Orders Medication Instructions Recorded Confirmed Benztropine Mesylate 0.5 mg ORAL BID 01/28/18 09/12/21 Lamotrigine [Lamotrigine ER] 100 mg PO DAILY 01/28/18 09/12/21 QUEtiapine [SEROquel] 200 mg PO QPM 01/28/18 09/12/21 clonazePAM [Clonazepam] 1 mg PO DAILY PRN 01/28/18 09/12/21 Albuterol Sulf [Ventolin Hfa 2 - 3 puffs INH QID #1 each 01/31/22 Inhaler] Benzonatate [Tessalon] 100 mg PO TID PRN #20 cap 01/31/22 Doxycycline Hyclate 100 mg PO BID 7 Days #14 cap 01/31/22 dexAMETHasone [Decadron] 4 mg PO DAILY #5 tablet 01/31/22 Albuterol Sulf [Ventolin Hfa 2 - 3 puffs INH Q4HR PRN #1 each 03/06/22 Inhaler] Amox/Clav 875/125 [Augmentin] 1 each PO Q12H #14 tablet 03/06/22 Benzonatate [Tessalon] 100 mg PO TID PRN #20 cap 03/06/22 dexAMETHasone [Decadron] 4 mg PO DAILY #7 tablet 03/06/22 Amox/Clav 875/125 [Augmentin] 1 each PO Q12H #20 tablet 04/29/22 - Allergies Allergies/Adverse Reactions: Allergies Allergy/AdvReac Type Severity Reaction Status Date / Time codeine Allergy Edema Verified 03/06/22 10:51 moxifloxacin [From Avelox] Allergy Anaphylaxis Verified 03/06/22 10:51 red dye Allergy Hives Verified 03/06/22 10:51 - Social History Does the pt smoke?: No Smoking Status: Never smoker Does the pt drink ETOH?: No Does the pt have substance abuse?: No - Immunizations Immunizations are current?: No Immunizations: TDAP >10years/unknown - POLST Patient has POLST: No PD ED PE NORMAL - Vitals Vital signs reviewed: Yes - General General: Alert and oriented X 3, No acute distress - HEENT HEENT: Other (Bilateral otitis media, left is mild right is severe) - Respiratory Respiratory: No respiratory distress - Neuro Neuro: Alert and oriented X 3, certified medical biller 2-12 intact, Normal speech Results - Vitals Vitals: Vital Signs - 24 hr 04/29/22 04/29/22 04/29/22 11:51 11:58 12:04 Temperature 36.7 C Heart Rate 100 Respiratory 18 17 17 Rate Blood Pressure 149/117 H O2 Saturation 99 Oxygen O2 Source Room air Departure - Departure Disposition: 01 Home, Self Care Clinical Impression: Otitis media Qualifiers: Otitis media type: suppurative Chronicity: acute Laterality: right Recurrence: non-recurrent Spontaneous tympanic membrane rupture: without spontaneous rupture Qualified Code(s): H66.001 - Acute suppurative otitis media without spontaneous rupture of ear drum, right ear Condition: Good Record reviewed to determine appropriate education?: Yes Instructions: ED Otitis Media Acute Adult Prescriptions: Amox/Clav 875/125 [Augmentin] 1 each PO Q12H #20 tablet Comments: You were seen today for ear infections, the right is much worse than the left. There is no significant wax to be concerned about. Return for new or worsening symptoms, follow-up with your primary care physician or urgent care in a week if not better.
== END 2022-04-29 12:16 | disposition home or self-care (01) ==
LOC: ED 11:40
DX: H66.001 Acute suppurative otitis media without spontaneous rupture of ear drum, right ear (principal)
CPT/HCPCS: 99282; 99283

== ENCOUNTER 2022-05-20 10:11 | Outpatient (CLI) | payer MEDICARE, MEDICAID ==
--- NOTE | 2022-05-20 11:08 | SLEEP CARE CONSULTATION ---
Information from patient questionnaire entered by Jessenia Ledesma. I have reviewed and concur with the information entered by Jessenia Ledesma. This document represents the service I personally performed and the decisions made by me, Sherrie Lovell ARNP. History of Present Illness Service Date and Time: 05/20/2022 1011 Previous diagnosis: Moderate, Obstructive Sleep Apnea-Hypopnea Syndrome AHI: 28.6 (in 2019) Reason for follow up: annual (LAST SEEN 02/2021) Equipment type: CPAP (CustomMade Dreamstation 2 s/u 03/2019; NEED SD CARD OR MACHINE FOR DOWNLOAD OR PRESSURE CHANGES) Equipment obtained from: Other ([facility]; needs new prescription for supplies) Mask style: Full face Mask brand: Resmed (F20, medium) Backup mask available: Yes (will when gets new order) Last cushion change: couple weeks ago Prior sleep studies: Yes Year and Where: 01/21/2019 [facility] Type of Sleep Study: Polysomnography HPI additional information: JARED TIRADO was diagnosed to have moderate, AHI 28.6, obstructive sleep apnea- hypopnea syndrome and returned today for CPAP therapy annual follow-up. Sleep Study - Results Type of Sleep Study: Polysomnography Prior sleep studies: Yes Year and Where: 01/21/2019 [facility] CPAP Compliance Data - Data Reviewed with Patient Average duration of nightly device use: 9 hours 2 minutes Compliance rate %: 98.3 (179/180 days used) Current pressure setting (cmH2O): 9 Average residual AHI: 2.4 Central apnea: 0.2 Obstructive apnea: 0.6 Hypopnea: 1.6 Average large leak: 26 minutes 22 secs Subjective Missed days of use due to: reports: other (power outage) Patient concerns: reports: air blowing in eyes (resolves with adjustment), dry mouth, nose, throat (off/on). denies: aerophagia, mask discomfort, mask leak noise, condensation in mask/hose, nasal congestion, epistaxis Observed to snore while using device: No Current pressure setting perceived as: comfortable On therapy, patient: reports: sleeping better, awakening more refreshed, being more awake and alert during the day, more rested overall. denies: drowsiness while driving Initial [place] Sleepiness Scale score: 4 (2020) Current [place] Sleepiness Scale score: 4 Allergies and Home Medications Known drug allergies: Yes (as listed) Drug allergies reviewed: Yes Home medication list reviewed: Yes (no changes) Allergy and home medication list: Allergies codeine Allergy (Verified 05/19/22 13:20) Edema moxifloxacin [From Avelox] Allergy (Verified 05/19/22 13:20) Anaphylaxis red dye Allergy (Verified 05/19/22 13:20) Hives Review of Systems Review of systems same as previous: Yes (no changes) Physical Exam Vital signs obtained and entered by: JESSENIA Govea MA Blood Pressure: 142/90 (LEFT ARM) Cuff size: regular Heart Rate: 85 O2 Saturation: 96 Height: 5 ft 2 in Weight: 231 lb 6.4 oz Weight change since last visit: 36 lb loss Body Mass Index: 42.3 BMI Classification: Morbidly Obese Impression and Plan 1. Obstructive Sleep Apnea-Hypopnea Syndrome, moderate, with good treatment compliance and good apnea control. On CPAP therapy, the patient has better sleep quality and is more rested overall. Patient has significant improvement of their sleep apnea and is satisfied with current CPAP therapy. Patient states she needs to get some supplies but her DME told her she had to have an appointment to get an updated prescription first. I will update her prescription and have it faxed to her DME later today. Patient's apnea severity and rationale for treatment to reduce apnea, improve sleep quality and reduce cardiovascular and cerebrovascular events was reviewed. I also reviewed the benefit of consistent device use of CPAP for depression and mood disorder (Bipolar). 2. Obesity, unspecified. Currently patients BMI is 42.3. She has lost about 36 pounds since last appointment. She has cut out bread products. Obesity increases the risk of apnea, CPAP pressure requirements and overall health risks especially cardiovascular and diabetes. Thus patient is advised to continue to try to lose weight. The patient's CPAP pressure range should accommodate some weight loss. Symptoms to report for additional pressure adjustment discussed. * Continu CPAP pressure at 9 cmH2O * Update supplies * Notify me if snoring with mask or feeling that the pressure is too much or too little * Attempt to lose weight * Call this office if any problems using CPAP * Return for follow up in [1 year], or sooner if concerns arise Counseling Topics: Spare mask, Weight loss health impact Visit Type: In Office Time Spent with Patient (minutes): 21 Provider Statement: I spent 100% of the Face to Face Visit with the patient with greater than 50% spent counseling the patient and coordination of care.
[2022-05-20 11:09] VITALS: BP 142/90
== END 2022-05-20 10:12 | disposition home or self-care (01) ==
LOC: SC 10:11
PROVIDERS: ATTEND Nurse Practitioner Family
DX: G47.33 Obstructive sleep apnea (adult) (pediatric) (principal); E66.01 Morbid (severe) obesity due to excess calories; Z68.41 Body mass index [BMI] 40.0-44.9, adult
CPT/HCPCS: 99213; G0463; 99212

== ENCOUNTER 2022-05-25 12:41 | Emergency (ER) | payer MEDICARE, MEDICAID ==
[2022-05-25 12:49] VITALS: BP 125/94
--- NOTE | 2022-05-25 13:12 | XRAY Report ---
PROCEDURE: Wrist 4 View LT INDICATIONS: Trauma. Pain. TECHNIQUE: 4 views of the wrist were acquired. COMPARISON: None FINDINGS: Bones: No fractures or dislocations. No suspicious bony lesions. 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 Scaphoid view: Scaphoid is intact. Soft tissues: No suspicious soft tissue calcifications. IMPRESSION: No fracture. No acute osseous lesion. If symptoms and/or clinical concern for pathology persists, fur ther assessment with repeat plain film radiographs (7-10 days) or advanced imaging (CT, MR, bone scan ) should be considered. Reviewed by: Teri Max MD, PhD on 05/25/2022 1:10 PM PDT Approved by: Teri Max MD, PhD on 05/25/2022 1:10 PM PDT Station ID: [id number]
--- NOTE | 2022-05-25 14:29 | ED Physician Documentation ---
PD HPI UPPER EXT INJURY - Stated complaint Stated Complaint: LT HAND INJ - Chief complaint Chief Complaint: Trauma Ext - History of Present Illness Location: Left, Hand Where injury occurred: Home Pain level max: 3 Pain level now: 2 Improved by: Rest, Immobilization Worsened by: Moving, Palpating Associated symptoms: Numbness, Tingling. No: Weakness, Swelling, Discolored Contributing factors: No: Anticoagulated - Additonal information Additional information: Patient is a 66-year-old female, right-handed who presents to the emergency department with a left hand injury. She states that 2 nights ago she was with her granddaughter who fell backwards and hyperextended the patient's left hand backwards. She states initial pain, feels like it was likely a sprain. Since that time the pain has been worse with movement, better with rest and she has had some intermittent numbness and tingling to her fingers on the palmar aspect. No swelling. No bruising. 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 HEENT: None Psych: Bipolar disorder Musculoskeletal: None Derm: None - Past Surgical History Past Surgical History: Yes General: Cholecystectomy, Gastric surgery - Present Medications Home Medications: Ambulatory Orders Medication Instructions Recorded Confirmed Benztropine Mesylate 0.5 mg ORAL BID 01/28/18 05/20/22 Lamotrigine [Lamotrigine ER] 100 mg PO DAILY 01/28/18 05/20/22 QUEtiapine [SEROquel] 200 mg PO QPM 01/28/18 05/20/22 clonazePAM [Clonazepam] 1 mg PO DAILY PRN 01/28/18 05/20/22 Doxycycline Hyclate 100 mg PO BID 7 Days #14 cap 01/31/22 05/20/22 Albuterol Sulf [Ventolin Hfa 2 - 3 puffs INH Q4HR PRN #1 each 03/06/22 05/20/22 Inhaler] Amox/Clav 875/125 [Augmentin] 1 each PO Q12H #20 tablet 04/29/22 05/20/22 - Allergies Allergies/Adverse Reactions: Allergies Allergy/AdvReac Type Severity Reaction Status Date / Time codeine Allergy Edema Verified 05/25/22 12:49 moxifloxacin [From Avelox] Allergy Anaphylaxis Verified 05/25/22 12:49 red dye Allergy Hives Verified 05/25/22 12:49 - Social History Does the pt smoke?: No Smoking Status: Never smoker Does the pt drink ETOH?: No Does the pt have substance abuse?: No - Immunizations Immunizations are current?: No Immunizations: TDAP >10years/unknown - POLST Patient has POLST: No PD ED PE NORMAL - Vitals Vital signs reviewed: Yes - General General: Alert and oriented X 3, No acute distress - HEENT HEENT: Moist mucous membranes - Derm Derm: Warm and dry - Extremities Extremities: Other - Neuro Neuro: Alert and oriented X 3 - Free text exam Free text exam: L hand/ wrist - No deformity. Neurovascular intact. No bony tenderness over the distal radius, distal ulna, carpals or metacarpals. Otherwise normal examination of the hand. No scaphoid tenderness. Neurovascularly intact. There is pain with extension of the wrist. This is mainly over the carpal tunnel area. Results - Vitals Vitals: Vital Signs - 24 hr 05/25/22 12:44 Temperature 37.3 C Heart Rate 89 Respiratory 18 Rate Blood Pressure 125/94 H O2 Saturation 99 Oxygen O2 Source Room air - Rads (name of study) L wrist xray Relevant Findings:: Final report received, See rad report PD Medical Decision Making - ED course Complexity details: reviewed results, re-evaluated patient, considered differential, d/w patient ED course: Patient with what appears to be a left wrist sprain. No acute findings on x- ray. No snuffbox tenderness to suggest scaphoid injury. There is pain with movement of the thumb as well as the wrist. Placed in a Velcro thumb spica for comfort. We will have her follow-up with her doctor for further care. Neurovascular intact. She is able to move the hand, wrist and fingers normally. Patient counseled regarding signs and symptoms for which I believe and urgent re-evaluation would be necessary. Patient with good understanding of and agreement to plan and is comfortable going home at this time This document was made in part using voice recognition software. While efforts are made to proofread this document, sound alike and grammatical errors may occur. Departure - Departure Disposition: 01 Home, Self Care Clinical Impression: Sprain of left wrist Qualifiers: Encounter type: initial encounter Qualified Code(s): S63.502A - Unspecified sprain of left wrist, initial encounter Condition: Good Instructions: ED Sprain Wrist Follow-Up: your,doctor in 1 week [Other] Comments: Use the Velcro thumb spica splint as needed for comfort. This will especially help at night when you are trying to sleep. Please follow-up with your doctor in 1 week if you are still having symptoms. Your x-ray does not show any acute abnormalities today. Please return if you worsen Discharge Date/Time: 05/25/22 14:42
== END 2022-05-25 14:42 | disposition home or self-care (01) ==
LOC: ED 12:41
DX: S63.502A Unspecified sprain of left wrist, initial encounter (principal); X50.1XXA Overexertion from prolonged static or awkward postures, initial encounter; Y93.F9 Activity, other caregiving; Y92.009 Unspecified place in unspecified non-institutional (private) residence as the place of occurrence of the external cause
CPT/HCPCS: 99283

== ENCOUNTER 2022-07-14 18:16 | Outpatient (CLI) | payer MEDICARE, MEDICAID ==
--- NOTE | 2022-07-15 11:24 | CT Report ---
PROCEDURE: Low Dose Lung Cancer Screen INDICATIONS: HIST OF SMOKING TECHNIQUE: Noncontrast low-dose axial images were acquired from the pulmonary apices to the posterior costophren ic angles. Multiplanar MIP reformats were then reconstructed. For radiation dose reduction, the follo wing was used: automated exposure control, adjustment of mA and/or kV according to patient size. COMPARISON: Chest radiograph dated 03/06/2022 FINDINGS: Image quality: Excellent. Prior cancer history: Unsure. Lungs and pleura: No pleural effusions. No pneumothorax. A 4 mm anterior right lower lobe nodule see n on image 156/series 4. No suspicious pulmonary nodules which require follow up. Mild bibasilar atel ectasis. Mediastinum: Heart size is normal. No pericardial effusions. No mediastinal adenopathy by size criter ia. No large vessel abnormality. Atherosclerotic calcifications of the thoracic aorta and coronary ar teries. Chest wall and lower neck: Thyroid is unremarkable. No axillary or supraclavicular adenopathy by size . Bones: No aggressive osseous abnormality. No acute compression fracture. Multilevel spondylosis. Upper Abdomen: Status post cholecystectomy. Moderate hiatal hernia. Other visualized upper abdominal structures appear unremarkable in noncontrast appearance. IMPRESSION: No acute cardiopulmonary abnormalities. No acute airspace disease. A 4 mm anterior right lower lobe nodule. Lung RAD: 2 - Benign. Recommendation: Continue annual screening in 12 Months with LDCT Non-Lung Significant Findings- atheroscelerosis. Reviewed by: Jerson Brown MD on 07/15/2022 11:23 AM PDT Approved by: Jerson Brown MD on 07/15/2022 11:23 AM PDT Station ID: [id number]
--- NOTE | 2022-07-15 11:26 | Ultrasound Report ---
PROCEDURE: Head or Neck Soft Tissue INDICATIONS: HIST OF THYROID NODULE TECHNIQUE: Real-time scanning was performed of the thyroid gland, with image documentation. COMPARISON: None FINDINGS: Right: Thyroid lobe measures 4.2 x 2.1 x 2.3 cm, and is homogeneous in echotexture. Left: Thyroid lobe measures 3.6 x 1.8 x 1.3 cm, and is homogenous in echotexture. Isthmus: 3 mm thick. Nodule number: One Location: Right midpole Size: 1.5 x 1.3 x 1.6 cm. Composition: Solid. Echogenicity: Hypoechoic. Shape: wider than tall. Margins: Smooth (0 points). Echogenic foci: Macrocalcification. Total points: 5 ACR TI-RADS category: Moderately suspicious (4-6 points) Nodule number: Two Location: Right midpole Size: 0.7 x 0.5 x 0.8 cm. Composition: Solid. Echogenicity: Hyperechoic. Shape: wider than tall. Margins: Smooth (0 points). Echogenic foci: None (0 points). Total points: 3 ACR TI-RADS category: Mildly suspicious (3 points). IMPRESSION: 1. Moderately suspicious 1.6 cm right mid pole thyroid nodule. This meets criteria for FNA. 2. Mildly suspicious hypoechoic right thyroid nodule, too small to warrant follow-up. ACR TI-RADS definitions and recommendations: TI-RADS 1 (benign): 0 points. FNA not needed. TI-RADS 2 (not suspicious): 2 points. FNA not needed. TI-RADS 3 (mildly suspicious): 3 points. "FNA if 2.5 cm or larger, follow up if 1.5 cm or larger (at 1, 3, and 5 years). TI-RADS 4 (moderately suspicious): 4-6 points. "FNA if 1.5 cm or larger, follow up if 1 cm or larger (at 1, 2, 3, and 5 years). TI-RADS 5 (highly suspicious): 7 points or more. "FNA if 1 cm or larger, follow up if 0.5 cm or larger (every year for 5 years). Reviewed by: Haydee Malloy MD on 07/15/2022 11:24 AM PDT Approved by: Haydee Malloy MD on 07/15/2022 11:24 AM PDT Station ID: [id number]
== END 2022-07-14 18:17 | disposition home or self-care (01) ==
LOC: DI 18:16
PROVIDERS: ATTEND Nurse Practitioner Family
DX: R91.1 Solitary pulmonary nodule (principal); R06.2 Wheezing; E04.2 Nontoxic multinodular goiter; R49.0 Dysphonia; Z87.891 Personal history of nicotine dependence

== ENCOUNTER 2022-07-20 12:55 | Outpatient (CLI) | payer MEDICARE, MEDICAID ==
[2022-07-20 13:18] LABS: BASOPHILS % (AUTO) 0.4 %; EOSINOPHILS # (AUTO) 0.2 10^3/uL (0.0-0.7); EOSINOPHILS % (AUTO) 1.9 %; HCT - HEMATOCRIT 43.5 % (37.0-47.0); HGB - HEMOGLOBIN 14.2 g/dL (12.0-16.0); LYMPHOCYTES # (AUTO) 2.4 10^3/uL (1.5-3.5); LYMPHOCYTES % (AUTO) 28.6 %; MEAN CORPUSCULAR HEMOGLOBIN 29.6 pg (27.0-31.0); MEAN CORPUSCULAR HGB CONC 32.6 g/dL (32.0-36.0); MEAN CORPUSCULAR VOLUME 90.8 fL (81.0-99.0); MEAN PLATELET VOLUME 9.4 fL (7.9-10.8); MONOCYTES # (AUTO) 0.6 10^3/uL (0.0-1.0); NEUTROPHILS # (AUTO) 5.2 10^3/uL (1.5-6.6); NEUTROPHILS % (AUTO) 61.9 %; PLT - PLATELET COUNT 350 10^3/uL (130-450); RED BLOOD COUNT 4.79 10^6/uL (4.20-5.40); RED CELL DISTRIBUTION WIDTH 14.2 % (12.0-15.0); WHITE BLOOD COUNT 8.3 x10^3/uL (4.8-10.8)
[2022-07-20 13:35] LABS: ALBUMIN 4.4 g/dL (3.2-5.5); ALBUMIN/GLOBULIN RATIO 1.5 (1.0-2.2); ALKALINE PHOSPHATASE 80 IU/L (42-121); ALT ALANINE AMINOTRANSFERASE 15 IU/L (10-60); AST ASPARTATE AMINOTRANSFERASE 18 IU/L (10-42); BILIRUBIN,TOTAL 0.3 mg/dL (0.2-1.0); BUN - BLOOD UREA NITROGEN 19 mg/dL (6-20); CALCIUM 9.7 mg/dL (8.5-10.3); CARBON DIOXIDE - CO2 25 mmol/L (21-32); CHLORIDE 108 mmol/L (101-111); CHOL/HDL RATIO 4.6 (<4.4); CHOLESTEROL 256 mg/dL; CREATININE 0.6 mg/dL (0.4-1.0); GFR - MDRD 100 (>89); GLUCOSE 100 mg/dL (70-100); HDL CHOLESTEROL 56 mg/dL; LDL CHOLESTEROL,CALCULATED 169 mg/dL; POTASSIUM 3.8 mmol/L (3.5-5.0); SODIUM 142 mmol/L (135-145); TOTAL PROTEIN 7.4 g/dL (6.7-8.2); TRIGLYCERIDES 155 mg/dL; VLDL CHOLESTEROL 31 mg/dL
[2022-07-20 13:47] LABS: THYROID STIMULATING HORMONE 1.17 uIU/mL (0.34-5.60)
[2022-07-21 15:14] LABS: ESTIMATED AVERAGE GLUCOSE 123 mg/dL (70-100); HEMOGLOBIN A1c% 5.9 % (4.27-6.07)
== END 2022-07-20 12:56 | disposition home or self-care (01) ==
LOC: LAB 12:55
PROVIDERS: ATTEND Nurse Practitioner Family
DX: R03.0 Elevated blood-pressure reading, without diagnosis of hypertension (principal)
CPT/HCPCS: 36415; 80053; 80061; 83036; 83721; 84443; 85025

== ENCOUNTER 2022-07-29 09:36 | Outpatient (CLI) | payer MEDICARE, MEDICAID ==
[2022-07-29] MEDS ORDERED: LIDOCAINE-MPF 1% 5 ML VIAL ONE (09:51)
[2022-07-29] MEDS ORDERED: LIDOCAINE-MPF 1% 5 ML VIAL TD ONE (11:52)
--- NOTE | 2022-07-29 13:13 | Ultrasound Report ---
PROCEDURE: FNA Bx w/US Gdn 1st Les INDICATIONS: THYROID NODULE TECHNIQUE: The indications, alternatives, benefits, risks, and complications of the procedure were explained to the patient. Written informed consent was obtained and placed in the chart. The area of interest wa s examined sonographically and a site was chosen for ultrasound guided percutaneous sampling. The sk in was prepared and draped in the usual fashion, and anesthetized with 1% lidocaine infiltrated from the skin down to the lesion. Multiple passes were then performed, with contents emptied into an appr [facility] pathology specimen container. A bandage was applied to the area of access at completion of t he study. COMPARISON: Thyroid ultrasound 07/14/2022 FINDINGS: Location(s) of lesion(s) sampled: Right lobe nodule #1 [place]: 25 gauge hypodermic needles. Number of passes: 6 Medications: 1% lidocaine for local anaesthesia. Complications: None. IMPRESSION: Successful ultrasound-guided right thyroid nodule fine needle aspiration, with cytology results [facility]. Reviewed by: Coleman Weller MD on 07/29/2022 1:12 PM PDT Approved by: Coleman Weller MD on 07/29/2022 1:12 PM PDT Station ID: [id number]
== END 2022-07-29 09:37 | disposition home or self-care (01) ==
LOC: DI 09:36
PROVIDERS: ATTEND Nurse Practitioner Family
DX: E04.1 Nontoxic single thyroid nodule (principal)
CPT/HCPCS: 10005

== ENCOUNTER 2022-08-31 10:21 | Outpatient (CLI) | payer MEDICARE, MEDICAID | END 2022-08-31 10:22 | disposition critical access hospital (66) | LOC: EMS 10:21 | DX: R45.851 Suicidal ideations (principal) | CPT/HCPCS: A0425; A0429 ==

== ENCOUNTER 2022-08-31 10:43 | Emergency (ER) | payer MEDICARE, MEDICAID ==
[2022-08-31 11:11] LABS: MUDS CUTOFF CONCENTRATIONS CUTOFF CONC BELOW:
[2022-08-31 11:14] LABS: BILIRUBIN,URINE NEGATIVE (NEGATIVE); GLUCOSE, URINE (UA) NEGATIVE (NEGATIVE); KETONES,URINE (UA) NEGATIVE (NEGATIVE); LEUKOCYTE ESTERASE, URINE NEGATIVE (NEGATIVE); NITRITE,URINE NEGATIVE (NEGATIVE); OCCULT BLOOD,URINE NEGATIVE (NEGATIVE); PROTEIN,URINE NEGATIVE (NEGATIVE); UROBILINOGEN,URINE 0.2 (NORMAL) E.U./dL (NORMAL)
[2022-08-31 11:20] LABS: CLARITY,URINE CLEAR (CLEAR)
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
[2022-08-31 11:21] LABS: BASOPHILS % (AUTO) 0.4 %; EOSINOPHILS # (AUTO) 0.2 10^3/uL (0.0-0.7); EOSINOPHILS % (AUTO) 1.8 %; HCT - HEMATOCRIT 46.4 % (37.0-47.0); HGB - HEMOGLOBIN 15.3 g/dL (12.0-16.0); LYMPHOCYTES # (AUTO) 2.5 10^3/uL (1.5-3.5); LYMPHOCYTES % (AUTO) 30.3 %; MEAN CORPUSCULAR HEMOGLOBIN 29.3 pg (27.0-31.0); MEAN CORPUSCULAR VOLUME 88.7 fL (81.0-99.0); MEAN PLATELET VOLUME 9.2 fL (7.9-10.8); MONOCYTES # (AUTO) 0.6 10^3/uL (0.0-1.0); MONOCYTES % (AUTO) 7.3 %; NEUTROPHILS % (AUTO) 59.8 %; PLT - PLATELET COUNT 416 10^3/uL (130-450); RED BLOOD COUNT 5.23 10^6/uL (4.20-5.40); RED CELL DISTRIBUTION WIDTH 14.3 % (12.0-15.0); WHITE BLOOD COUNT 8.3 x10^3/uL (4.8-10.8)
[2022-08-31 11:23] LABS: AMPHETAMINE SCREEN,URINE NEGATIVE (NEGATIVE); BARBITURATE SCREEN,UR NEGATIVE (NEGATIVE); BENZODIAZEPINES SCREEN, URINE NEGATIVE (NEGATIVE); COCAINE SCREEN URINE NEGATIVE (NEGATIVE); METHADONE SCREEN, URINE NEGATIVE (NEGATIVE); METHAMPHETAMINES SCREEN, URINE NEGATIVE (NEGATIVE); OPIATE SCREEN, URINE NEGATIVE (NEGATIVE); OXYCODONE SCREEN, URINE NEGATIVE (NEGATIVE); PROPOXYPHENE SCREEN, URINE NEGATIVE (NEGATIVE); THC CANNABINOID SCREEN, URINE POSITIVE (NEGATIVE); TRICYCLIC ANTIDEPRESSANT,URINE POSITIVE (NEGATIVE)
[2022-08-31 11:40] LABS: ACETAMINOPHEN < 10 ug/mL (10-30); ALBUMIN 4.3 g/dL (3.2-5.5); ALBUMIN/GLOBULIN RATIO 1.2 (1.0-2.2); ALKALINE PHOSPHATASE 81 IU/L (42-121); ALT ALANINE AMINOTRANSFERASE 18 IU/L (10-60); AST ASPARTATE AMINOTRANSFERASE 20 IU/L (10-42); BILIRUBIN,TOTAL 0.5 mg/dL (0.2-1.0); BUN - BLOOD UREA NITROGEN 15 mg/dL (6-20); CALCIUM 9.8 mg/dL (8.5-10.3); CARBON DIOXIDE - CO2 23 mmol/L (21-32); CHLORIDE 107 mmol/L (101-111); CREATININE 0.7 mg/dL (0.4-1.0); ETOH - ETHANOL < 5.0 mg/dL; GFR - MDRD 83 (>89); GLUCOSE 100 mg/dL (70-100); LIPASE 29 U/L (22-51); POTASSIUM 4.2 mmol/L (3.5-5.0); SALICYLATE < 6.0 mg/dL; SODIUM 139 mmol/L (135-145); TOTAL PROTEIN 7.9 g/dL (6.7-8.2)
[2022-08-31] MEDS ORDERED: ACETAMINOPHEN 325 MG TABLET PO STA (13:21)
[2022-08-31] MEDS ORDERED: clonazePAM 0.5 MG TABLET PO STA (14:44)
[2022-08-31] MEDS ORDERED: QUEtiapine 25 MG TABLET PO SCH (14:45)
[2022-08-31] MEDS ORDERED: lamoTRIgine 100 MG TABLET PO SCH ×2 (15:00→21:00)
[2022-08-31 18:59] VITALS: BP 130/53
[2022-08-31] MEDS ORDERED: BENZTROPINE 2 MG TABLET PO SCH (21:00)
[2022-09-01] MEDS ORDERED: lamoTRIgine 100 MG TABLET PO SCH (09:00)
== END 2022-08-31 20:39 ==
LOC: EDUNIT# → ED 10:43
DX: R45.851 Suicidal ideations (principal); Z79.899 Other long term (current) drug therapy
CPT/HCPCS: 36415; 80053; 80306; 80307; 81003; 83690; 84443; 85025; 99284; 99285; A9270; G0480; 80320; 80329; 81001; 87086

== ENCOUNTER 2023-01-09 15:06 | Emergency (ER) | payer MEDICARE, MEDICAID ==
--- NOTE | 2023-01-09 16:12 | ED Physician Documentation ---
PD HPI URI - Stated complaint Stated Complaint: NAUSEA,LARSON,FATIGUE - Chief complaint Chief Complaint: Heent - History obtained from History obtained from: Patient - Additional information Additional information: Patient is a 67-year-old female presenting for evaluation of a 10 days of feeling sinus and head congestion, ears feeling plugged and painful for the past 1 week. She denies a fever. Denies shortness of air, chest pain or productive cough. She has had clear to green nasal discharge. She has not tried any [id number] medications. She has not taken a COVID test. She feels like her symptoms have not been getting worse and she would have expected them to by now. 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 HEENT: None Psych: Bipolar disorder Musculoskeletal: None Derm: None - Past Surgical History Past Surgical History: Yes General: Cholecystectomy, Gastric surgery - Present Medications Home Medications: Ambulatory Orders Medication Instructions Recorded Confirmed Benztropine Mesylate 0.5 mg ORAL BID 01/28/18 01/09/23 Lamotrigine [Lamotrigine ER] 100 mg PO DAILY 01/28/18 01/09/23 QUEtiapine [SEROquel] 200 mg PO HS 01/28/18 01/09/23 clonazePAM [Clonazepam] 1 mg PO DAILY PRN 01/28/18 01/09/23 QUEtiapine [SEROquel] 50 mg PO DAILY 08/31/22 01/09/23 lamoTRIgine [Lamictal] 150 mg PO DAILY PM 08/31/22 01/09/23 Amox/Clav 875/125 [Augmentin] 1 each PO Q12H #20 tablet 01/09/23 Buspirone HCl 10 mg ORAL BID PRN 01/09/23 01/09/23 DULoxetine [Cymbalta] 20 mg PO DAILY 01/09/23 01/09/23 - Allergies Allergies/Adverse Reactions: Allergies Allergy/AdvReac Type Severity Reaction Status Date / Time codeine Allergy Edema Verified 01/09/23 15:16 moxifloxacin [From Avelox] Allergy Anaphylaxis Verified 01/09/23 15:16 red dye Allergy Hives Verified 01/09/23 15:16 - Social History Does the pt smoke?: Yes Smoking Status: Current every day smoker Does the pt drink ETOH?: No Does the pt have substance abuse?: Yes Substance Use and Type: Marijuana - Immunizations Immunizations are current?: Yes Immunizations: TDAP >10years/unknown - POLST Patient has POLST: No PD ED PE NORMAL - General General: Alert and oriented X 3, No acute distress, Well developed/nourished - HEENT HEENT: Atraumatic, Moist mucous membranes, Pharynx benign, Other (Bilateral maxillary sinus tenderness, no overlying erythema or swelling). No: Ears normal (Bilateral TMs With effusion) - Neck Neck: Supple, no meningeal sign - Cardiac Cardiac: RRR, No murmur - Respiratory Respiratory: No respiratory distress, Clear bilaterally - Derm Derm: Warm and dry - Neuro Neuro: Normal speech Results - Vitals Vitals: Vital Signs - 24 hr 01/09/23 01/09/23 15:17 16:19 Temperature 37.2 C 36.8 C Heart Rate 98 73 Respiratory 18 16 Rate Blood Pressure 140/103 H 173/73 H O2 Saturation 96 100 Oxygen O2 Source Room air PD Medical Decision Making - ED course ED course: Patient with URI symptoms for 10 days including ear pain and sinus congestion. Vital signs are stable. No respiratory symptoms and normal lung sounds. Based on exam I do think she has sinusitis which is lasting longer than the typical viral course. Patient is agreeable to trial of antibiotics. Respiratory swab is pending at time of discharge. Patient is counseled regarding treatment plan as well as concerning symptoms to return for. Departure - Departure Disposition: 01 Home, Self Care Clinical Impression: Sinusitis Condition: Stable Instructions: ED Sinusitis Abx Tx Prescriptions: Amox/Clav 875/125 [Augmentin] 1 each PO Q12H #20 tablet Comments: I am starting you on an antibiotic for the treatment of your ear and sinus infection given the duration of your symptoms. I have sent this prescription to [facility] in [place]. Please complete the course of the antibiotics. Return to the ER with any worsening symptoms. Your respiratory panel is pending. This will check for COVID, influenza, RSV and a number of other common cold viruses. We will notify you if it is positive for COVID. Otherwise you can check the patient portal for your results. You should quarantine from others until you know your COVID result. Please continue with acetaminophen or ibuprofen as needed for fevers and body aches, plenty of fluids/hydration and rest. Return to the ER with any worsening symptoms such as difficulty breathing or vomiting. Forms: PCP List Discharge Date/Time: 01/09/23 16:28
[2023-01-09 16:34] VITALS: BP 173/73; O2SAT 100
[2023-01-09 17:16] LABS: B. PARAPERTUSSIS- RESP PCR PAN NOT DETECTED; B. PERTUSSIS- RESP PCR PANEL NOT DETECTED; C. PNEUMONIAE- RESP PCR PANEL NOT DETECTED; CORONAVIRUS 229E-RESP PCR NOT DETECTED; CORONAVIRUS HKU1-RESP PCR NOT DETECTED; CORONAVIRUS NL63-RESP PCR NOT DETECTED; CORONAVIRUS OC43-RESP PCR NOT DETECTED; HUMAN METAPNEUMOVIRUS NOT DETECTED; INFLUENZA A- RESP PCR PANEL NOT DETECTED; INFLUENZA B - RESP PCR PANEL NOT DETECTED; M. PNEUMONIAE- RESP PCR PANEL NOT DETECTED; PARAINFLUENZA VIRUS 1 NOT DETECTED; PARAINFLUENZA VIRUS 2 NOT DETECTED; PARAINFLUENZA VIRUS 3 NOT DETECTED; PARAINFLUENZA VIRUS 4 NOT DETECTED; RHINOVIRUS/ENTEROVIRUS NOT DETECTED; RSV- RESP PCR PANEL NOT DETECTED; SARS-CoV-2 -RESP PCR PANEL NOT DETECTED
== END 2023-01-09 16:28 | disposition home or self-care (01) ==
LOC: ED 15:06
DX: J32.9 Chronic sinusitis, unspecified (principal); F17.200 Nicotine dependence, unspecified, uncomplicated
CPT/HCPCS: 87633; 99283

== ENCOUNTER 2023-01-15 07:20 | Emergency (ER) | payer MEDICARE, MEDICAID ==
[2023-01-15 07:39] VITALS: BP 146/69; O2SAT 94
[2023-01-15] MEDS ORDERED: DEXAMETHASONE 10 MG/ML VIAL PO STA (07:54)
[2023-01-15] MEDS ORDERED: CHERRY SYRUP 10 ML UDC PO ONE (07:54)
[2023-01-15] MEDS ORDERED: HYDROcod/ACETAM 5/325 MG TABLET PO STA (07:54)
--- NOTE | 2023-01-15 07:57 | ED Physician Documentation ---
PD HPI UPPER EXT INJURY - Stated complaint Stated Complaint: LT HAND PX,NUMBNESS - Chief complaint Chief Complaint: Ext Problem - History obtained from History obtained from: Patient - History of Present Illness Location: Left, Wrist Type of injury: Twist Where injury occurred: Home Timing - onset: Yesterday Timing - duration: Days (1) Timing - details: Abrupt onset, Still present Improved by: Rest, Immobilization Worsened by: Moving, Palpating Associated symptoms: Numbness, Swelling. No: Weakness, Tingling Contributing factors: Other (hx of arthritis and carpal tunnel). 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 She did not have too much pain initially and subsequently has developed severe pain that is kept her awake all night. She has numbness to her hand as well. She has had a prior history of carpal tunnel syndrome. She usually gets symptoms of arthritis over the first carpometacarpal joint. She did not get much relief with the ibuprofen spent the night awake waiting for her son to take her to the hospital. Review of Systems Constitutional: denies: Fever, Chills Ears: denies: Ear pain Nose: denies: Congestion Throat: denies: Sore throat Respiratory: denies: Cough GI: denies: Nausea, Vomiting, Constipation, Diarrhea Skin: denies: Rash Musculoskeletal: reports: Extremity pain, Joint pain. denies: Neck pain, Back pain Neurologic: reports: Numbness. denies: Generalized weakness, Focal weakness PD PAST MEDICAL HISTORY - Past Medical History Cardiovascular: None Respiratory: Asthma, Sleep apnea, CPAP use Neuro: None Endocrine/Autoimmune: None GI: Hiatal hernia, Diverticulitis, Other [employer]: None : None HEENT: None Psych: Bipolar disorder Musculoskeletal: None Derm: None - Past Surgical History Past Surgical History: Yes General: Cholecystectomy, Gastric surgery - Present Medications Home Medications: Ambulatory Orders Medication Instructions Recorded Confirmed Benztropine Mesylate 0.5 mg ORAL BID 01/28/18 01/09/23 Lamotrigine [Lamotrigine ER] 100 mg PO DAILY 01/28/18 01/09/23 QUEtiapine [SEROquel] 200 mg PO HS 01/28/18 01/09/23 clonazePAM [Clonazepam] 1 mg PO DAILY PRN 01/28/18 01/09/23 QUEtiapine [SEROquel] 50 mg PO DAILY 08/31/22 01/09/23 lamoTRIgine [Lamictal] 150 mg PO DAILY PM 08/31/22 01/09/23 Amox/Clav 875/125 [Augmentin] 1 each PO Q12H #20 tablet 01/09/23 Buspirone HCl 10 mg ORAL BID PRN 01/09/23 01/09/23 DULoxetine [Cymbalta] 20 mg PO DAILY 01/09/23 01/09/23 HYDROcod/ACETAM 5/325 [[place] 5/325] 1 - 2 tablet PO Q6H PRN #14 tablet 01/15/23 - Allergies Allergies/Adverse Reactions: Allergies Allergy/AdvReac Type Severity Reaction Status Date / Time codeine Allergy Edema Verified 01/09/23 15:16 moxifloxacin [From Avelox] Allergy Anaphylaxis Verified 01/09/23 15:16 red dye Allergy Hives Verified 01/09/23 15:16 - Social History Does the pt smoke?: Yes Smoking Status: Current every day smoker Does the pt drink ETOH?: No Does the pt have substance abuse?: Yes - Immunizations Immunizations are current?: Yes Immunizations: TDAP >10years/unknown - POLST Patient has POLST: No PD ED PE NORMAL - Vitals Vital signs reviewed: Yes (hypertensive mild ) - General General: Alert and oriented X 3, No acute distress, Well developed/nourished - HEENT HEENT: Atraumatic, PERRL, EOMI - Neck Neck: Supple, no meningeal sign - Respiratory Respiratory: No respiratory distress - Derm Derm: Normal color, Warm and dry, No rash - Extremities Extremities: No deformity, No edema, Other (swelling point tenderness over the left thenar eminence and the 1st MCP) - Neuro Neuro: Alert and oriented X 3, platinum smith 2-12 intact, No motor deficit, No sensory deficit, Normal speech Eye Opening: Spontaneous Motor: Obeys Commands Verbal: Oriented GCS Score: 15 - Psych Psych: Normal mood, Normal affect Results - Vitals Vitals: Vital Signs - 24 hr 01/15/23 07:30 Temperature 36.6 C Heart Rate 78 Respiratory 18 Rate Blood Pressure 146/69 H O2 Saturation 94 Oxygen O2 Source Room air - Rads (name of study) L wrist Relevant Findings:: Prelim report reviewed (Impression: No acute plain film abnormality is seen. Underlying degenerative changes and a likely remote fracture, stable.), EMP independent interpretation of test PD Medical Decision Making - ED course Complexity details: reviewed results, re-evaluated patient, considered differential, d/w patient ED course: 67-year-old female with osteoarthritis of both wrists and hands has struck her left hand and now has increased pain in the carpometacarpal joint. And x-rays without evidence of a fracture the patient is placed into a thumb spica and given a dose of dexamethasone. Departure - Departure Disposition: 01 Home, Self Care Clinical Impression: Sprain of hand, thumb, left Qualifiers: Encounter type: initial encounter Sprain of finger site: metacarpophalangeal joint Qualified Code(s): S63.642A - Sprain of metacarpophalangeal joint of left thumb, initial encounter Condition: Stable Instructions: ED Sprain Hand Follow-Up: Sarah Ramos ARNP [Primary Care Provider] - Prescriptions: HYDROcod/ACETAM 5/325 [[place] 5/325] 1 - 2 tablet PO Q6H PRN #14 tablet PRN Reason: Pain Comments: Eli, today it looks like you have irritated the joint between your thumb and wrist and this is likely to cause you some pain for about a week to 10 days. We have given you some dexamethasone today and your pain may be significantly better this afternoon. I have E scribed some pain medication for you to use as needed to the [facility] in [place]. We have provided a thumb spica to reduce movement of the joint and this should help with control of your pain as well. Our expectations with treatment are 1 to 2 weeks for improvement to your baseline. Discharge Date/Time: 01/15/23 09:07
--- NOTE | 2023-01-15 08:40 | XRAY Report ---
PROCEDURE: Wrist 4 View LT INDICATIONS: increased arthritic pain/numbness TECHNIQUE: 4 views of the wrist were acquired. COMPARISON: 05/25/2022 FINDINGS: Bones: No acute fractures or dislocations. There is a likely remote fracture fragment seen along the radial aspect of the scaphoid. No suspicious bony lesions. Focal degenerative change is seen involving the first carpometacarpal joint, with milder degenerative changes seen elsewhere. Soft tissues: No suspicious soft tissue calcifications or masses. IMPRESSION: No acute plain film abnormality is seen. Underlying degenerative changes and a likely remote fracture, stable. Reviewed by: Devendra Rodriguez MD on 01/15/2023 7:38 AM [facility] Approved by: Devendra Rodriguez MD on 01/15/2023 7:38 AM [facility] Station ID: [id number]
== END 2023-01-15 09:07 | disposition home or self-care (01) ==
LOC: ED 07:20
DX: S63.642A Sprain of metacarpophalangeal joint of left thumb, initial encounter (principal); X58.XXXA Exposure to other specified factors, initial encounter; F17.200 Nicotine dependence, unspecified, uncomplicated
CPT/HCPCS: 73110; 99283; A9270